=== PATIENT | male | born 1955 | race Caucasian/White ===

== ENCOUNTER 2020-05-23 00:34 | Outpatient (CLI) | payer OTHER, SELFPAY ==
[2020-05-23 19:08] LABS: SARS-CoV-2 RNA PCR Negative
== END 2020-05-23 00:35 | disposition home or self-care (01) ==
LOC: ANHCOVIDDT 00:34
PROVIDERS: PCP Internal Medicine; Visit Provider Internal Medicine Gastroenterology
DX: Z01.812 Encounter for preprocedural laboratory examination (principal); Z11.59 Encounter for screening for other viral diseases
CPT/HCPCS: 87635; C9803; U0003

== ENCOUNTER 2020-05-25 01:45 | Day surgery (SDC) | payer OTHER, SELFPAY ==
[2020-05-18 11:00] VITALS: BMI 24.1
[2020-05-25 08:28] VITALS: BP 135/80; PULSE 64; RESP 22; TEMP 36.5; O2SAT 98; BMI 24.5
[2020-05-25] MEDS: LACTATED RINGERS 1,000 ML 150 ML IV CONT (08:49)
--- NOTE | 2020-05-25 08:56 | PM.HPGS ---
History of Present Illness History of Present Illness Consent: Risks, benefits, and alternatives have been discussed and questions answered. Patient agrees to proceed with procedure. Chief complaint: gerd, neoplasm screening, hx of polyps Narrative: Justin Jensen is a 65 year old W male referred for gastroscopy and colonoscopy. Patient has had chronic intermittent solid food dysphagia particularly with dry foods. He also has a intermittent history of heartburn. He does not take any acid inhibitory therapy. Patient undergoing colonoscopy secondary history of colonic polyps. Patient had an adenomatous polyp removed 10 years ago he was to return 5 years later but states he never sees a letter. No family history of colon polyps or colon cancer. He has no lower GI tract symptoms. [facility] Past Medical History Medical History (Updated 05/25/20 @ 08:58 by George Nicolas MD) Hypertension Surgical History Surgical History (Updated 05/25/20 @ 08:58 by George Nicolas MD) S/P right inguinal herniorrhaphy Family History Family History (Updated 07/07/14 @ 07:13 by DOCTOR UNKNOWN) Mother Hypertension Cerebrovascular accident Family history of Alzheimer's disease Father Malignant neoplasm of prostate Sibling Family history of malignant neoplasm of testis Social History Social History Smoking status: Former smoker Smoking end date: 11/10/90 Alcohol intake: current Gender identity (if verbalized by the patient): Male Meds Home Medications and Allergies Home Medications Medication Instructions Recorded Confirmed Type amlodipine 5 mg PO DAILY 05/18/20 05/18/20 History tamsulosin 0.4 mg PO DAILY 05/18/20 05/18/20 History Allergies Allergy/AdvReac Type Severity Reaction Status Date / Time codeine Allergy Severe Rash Verified 05/25/20 08:28 Vital Signs Vital Signs - 24 hr 05/25/20 08:28 Temperature 36.5 C Pulse Rate 64 Respiratory Rate 22 H Blood Pressure 135/80 Pulse Oximetry 98 Exam Const: Orientation/consciousness: patient oriented x3 Resp: Auscultation: clear to auscultation bilaterally Cardio: Rate: regular rate Rhythm: regular rhythm Heart sounds: no murmurs GI: GI Palp: Yes Soft to palpation, No Tenderness to palpation present (GI), Yes No hepatosplenomegaly present and No Palpable mass present Auscultation: normal bowel sounds Neuro: General: patient oriented x3 and no focal motor deficits Extrem: General: no pedal edema Assessment and Plan Additional Plan EGD for evaluation of dysphagia and heartburn and screening colonoscopy secondary history of colonic polyps
--- NOTE | 2020-05-25 09:20 | WPDANESEPPF ---
Anes - Initial Pre Proc Eval Procedure: Operation Date: 05/25/20 09:30 Proposed Procedures p Esophagogastroduodenoscopy&Screen Colon - George Nicolas MD Date/Time: 05/25/20 09:20 Surgeon: George Nicolas MD Pre Op Diagnosis: gerd, neoplasm screening, hx of polyps Patient Data Age: 65 Gender: M Height: 5 ft 7 in Weight: 71.2 kg Last Vital Signs Temp 36.5 C 05/25/20 08:28 Pulse 64 05/25/20 08:28 Resp 22 H 05/25/20 08:28 BP 135/80 05/25/20 08:28 Pulse Ox 98 05/25/20 08:28 Allergies Allergy/AdvReac Type Severity Reaction Status Date / Time codeine Allergy Severe Rash Verified 05/25/20 08:28 Home Medications Medication Instructions Recorded Confirmed Type amlodipine 5 mg PO DAILY 05/18/20 05/18/20 History tamsulosin 0.4 mg PO DAILY 05/18/20 05/18/20 History Patient hx anesthesia problems: none Family hx anesthesia problems: none PMFSH Past Medical History Medical History Hypertension Surgical History Surgical History S/P right inguinal herniorrhaphy Family History Family History Mother Hypertension Cerebrovascular accident Family history of Alzheimer's disease Father Malignant neoplasm of prostate Sibling Family history of malignant neoplasm of testis Social History Social History Smoking status: Former smoker Smoking end date: 11/10/90 Alcohol intake: current Gender identity (if verbalized by the patient): Male Anes - Eval Final PreProcedure Day of Procedure 05/25/20 09:20 Patient weight: normal Heart: regular rate and rhythm Lungs: clear to auscultation Airway: Mallampati scale class II Neurological: alert and oriented Last oral intake: >/= 8 hours ASA classification: II Emergent: no Anesthetic plan: proceed Anesthesia type and monitoring: general GIVS and standard monitoring Informed Consent: The patient's anesthetic plan and its attendant risks and benefits were discussed with the patient/family/POA. Questions were solicited and answers provided to the satisfaction of the patient/family/POA.
[2020-05-25 10:07] VITALS: BP 103/62; PULSE 59; RESP 18; O2SAT 97
[2020-05-25 10:17] VITALS: BP 98/61; PULSE 59; RESP 18; O2SAT 97
[2020-05-25 10:26] VITALS: BP 102/66; PULSE 52; RESP 18; O2SAT 97
== END 2020-05-25 10:41 | disposition home or self-care (01) ==
PROVIDERS: PCP Internal Medicine; Visit Provider Internal Medicine Gastroenterology
PROC: 0DJ08ZZ Inspection of Upper Intestinal Tract, Via Natural or Artificial Opening Endoscopic (ICD-10-PCS; CPT 43235; principal; 2020-05-25 09:30)
DX: Z12.11 Encounter for screening for malignant neoplasm of colon (principal); Z86.010 Personal history of colon polyps; K57.30 Diverticulosis of large intestine without perforation or abscess without bleeding; K21.0 Gastro-esophageal reflux disease with esophagitis; I10 Essential (primary) hypertension; Z87.891 Personal history of nicotine dependence; Z79.899 Other long term (current) drug therapy
CPT/HCPCS: 43239; G0105; 88305; J2704; J7120

== ENCOUNTER 2020-07-22 12:02 | Inpatient (IN) | payer OTHER, SELFPAY ==
[2020-07-22] VITALS (10 sets, daily range): BP systolic 152–174; BP diastolic 84–109; PULSE 62–93; RESP 8–20; TEMP 36.4–36.6; O2SAT 96–99; BMI 24.8; BMI 24.9
--- NOTE | ~2020-07-22 | XR_ITS ---
XR abdomen NG/feed tube rechec INDICATION: Evaluate NG tube position. TECHNIQUE: Limited KUB perform for evaluating NG tube . COMPARISON: 07/22/2020 FINDINGS: NG tube tip in the stomach, advanced since prior study. Visualized bowel gas pattern is un remarkable. IMPRESSION: 1: NG tube tip in the stomach. Reviewed, dictated and finalized at location A.
--- NOTE | ~2020-07-22 | CT_ITS ---
EXAMINATION: CT abdomen pelvis w con DATE: 07/22/2020 13:28 INDICATION: Left lower quadrant pain TECHNIQUE: Computed tomography (CT) of the abdomen and pelvis was performed with 100 cc Omnipaque 3 i ntravenous contrast. The dose-length product was 395.12 mGy-cm. Automated exposure control and iterat liv reconstruction technique were employed. COMPARISON: None. FINDINGS: There are dilated small bowel loops centered in the left mid abdomen with multiple focal ar eas of small bowel narrowing, consistent with obstruction. The more proximal small bowel in the dista l small bowel are relatively decompressed. No interloop fluid is identified. The colon is decompresse d. No evidence for diverticulitis. No free air or free fluid. Lung bases unremarkable. No significant pleural or pericardial effusion. The liver, spleen, pancreas, adrenal glands and kidneys are unremarkable. Gallbladder is present. There is atherosclerosis of the aorta without aneurysm. No lymphadenopathy. Prostate gland is enlarged. There is grade 1 spondylolis thesis at L5-S1 secondary to facet hypertrophy. IMPRESSION: 1. Small bowel obstruction with multiple segments of small bowel narrowing/thickening which may be du e to adhesions or inflammatory bowel disease. Reviewed, dictated and finalized at location A. IMPRESSION: 1. Small bowel obstruction with multiple segments of small bowel narrowing/thic kening which may be due to adhesions or inflammatory bowel disease.
--- NOTE | ~2020-07-22 | XR_ITS ---
EXAMINATION: XR abdomen NG/feed tube insert DATE: 07/22/2020 14:49 INDICATION: Nasogastric tube placement. TECHNIQUE: An upright view of the abdomen was obtained. COMPARISON: CT abdomen and pelvis 07/22/2020 FINDINGS: The lower abdomen and right lateral aspect of the adrenal excluded. There are multiple dila aureliano loops of small bowel. The nasogastric tube tip is in the stomach with proximal side port in the d istal esophagus. IMPRESSION: 1. Nasogastric tube tip in the stomach with proximal side port in the distal esophagus. Advancement 5 cm is recommended. 2. Dilated small bowel, consistent with small bowel obstruction. Reviewed, dictated and finalized at location A. IMPRESSION: 1. Nasogastric tube tip in the stomach with proximal side port in the distal es ophagus. Advancement 5 cm is recommended. 2. Dilated small bowel, consistent with small bowel obstruction.
--- NOTE | ~2020-07-22 | XR_ITS ---
SMALL BOWEL SERIES ONLY INDICATION: Small bowel obstruction TECHNIQUE: Serial plain films and fluoroscopic spot films are performed following oral demonstration of water-soluble contrast. COMPARISON: 07/22/2020 FINDINGS: Contrast was followed sequentially through the small bowel. The mucosal pattern is unremar kable. No evidence for stricture, polyp, diverticula or obstruction of flow of contrast. Transit ti me is normal. IMPRESSION: 1: Normal small bowel series. Reviewed, dictated and finalized at location A.
--- NOTE | 2020-07-22 12:30 | ECG_ITS ---
Measurements Intervals [place] Rate: 73 P: 73 CO: 144 QRS: 61 QRSD: 97 T: 47 QT: 387 QTc: 428 Interpretive Statements SINUS RHYTHM POSSIBLE LEFT ATRIAL ENLARGEMENT INCOMPLETE RIGHT BUNDLE BRANCH BLOCK BORDERLINE ECG Electronically Signed On 07-22-2020 14:22:09 CDT by Jace Macdonald D.O.
[2020-07-22 12:43] LABS: Basophils Absolute Auto 0.1 K/mm3 (0.0-0.1); Basophils Percent Auto 1.1 % (0.2-1.2); Eosinophils Absolute Auto 0.3 K/mm3 (0-0.3); Eosinophils Percent Auto 3.8 % (0-4.4); Hematocrit 43.4 % (42.0-52.0); Hemoglobin 14.9 g/dL (14.0-18.0); Immature Granulocyte Absolute 0.03 K/mm3 (0.00-0.031); Immature Granulocyte Percent A 0.4 % (0-0.5); Lymphocytes Absolute Auto 1.61 K/mm3 (0.9-3.2); Lymphocytes Percent Auto 19.4 % (18.3-44.2); Mean Corpuscular HGB Conc 34.3 g/dl (32-36); Mean Corpuscular Volume 87.5 fl (80-100); Mean Platelet Volume 9.8 fl (7.4-10.4); Monocytes Absolute Auto 0.9 K/mm3 (0.1-0.6); Monocytes Percent Auto 10.7 % (2.6-8.5); Neutrophils Absolute Auto 5.4 K/mm3 (1.3-6.7); Neutrophils Percent Auto 64.6 % (45.5-73.1); Platelet Count Result 256 k/mm3 (150-375); Red Blood Count 4.96 M/mm3 (4.6-6.20); Red Cell Distribution Width 13.2 % (11.5-14.5); White Blood Count 8.3 K/mm3 (4.5-10.0)
[2020-07-22 12:46] LABS: Add Urine Microscopic? NO; Appearance Urine Clear (Clear); Bilirubin Urine Negative (Negative); Blood Urine Negative (Negative); Color Urine Straw (Yellow); Glucose Urine UA Negative (Negative); Ketones Urine Negative (Negative); Leukocyte Esterase Ur Negative LEU/UL (Negative); Nitrate Urine Negative (Negative); Protein Urine Negative (Negative); Specific Grav Ur 1.011 (1.001-1.035); Urobilinogen Urine Negative mg/dL (<2.0)
[2020-07-22 12:51] LABS: Alanine Aminotransferase 25 U/L (4-50); Albumin Level 4.6 g/dL (3.5-5.1); Alkaline Phosphatase 90 U/L (38-126); Anion Gap 8 mmol/L (8-16); Aspartate Amino Transferase 50 U/L (17-59); Bilirubin,Total 0.6 mg/dL (0.2-1.3); Blood Urea Nitrogen 18 mg/dL (9-20); Carbon Dioxide 26 mmol/L (22-30); Chloride 101 mmol/L (98-107); Estimated CRCL calculation 62 ml/min; Estimated Glomerular Filt Rate > 60; Glucose 105 mg/dL (75-110); Lipase 98 U/L (23-300); Potassium 3.9 mmol/L (3.4-5.0); Sodium 135 mmol/L (137-145)
--- NOTE | 2020-07-22 13:00 | PC.NURSE ---
PT ASKING FOR PAIN MEDICATION, SPOKE WITH ABIMBOLA GARCIA, HE STATES HE WILL PLACE ORDERS. AWAITING NEW ORDERS.
[2020-07-22] MEDS: LACTATED RINGERS 1,000 ML 999 ML IV CONT (13:05)
--- NOTE | 2020-07-22 13:19 | ED.ABDPAIN ---
HPI - Abdominal Pain General Chief Complaint: Abdominal Pain Stated Complaint: abd pain Time Seen by Provider: 07/22/20 12:33 Source: patient Mode of arrival: ambulatory Limitations: no limitations History of Present Illness HPI narrative: 65-year-old man with a history of hypertension No abdominal surgeries Remote history of diverticulitis Complains of abdominal pain radiating into his back which started about an hour after he had breakfast while he was shopping at [employer] He tried Tums and drinking water with no relief He does not have other symptoms, no nausea vomiting diarrhea constipation, no fever, no urinary symptoms Pain has not changed or moved substantially He noticed that he was more tender in the lower left quadrant versus his perception of the pain which was more diffuse and possibly upper He does not smoke, he used to drink but he does not anymore Pertinent past history: diverticulitis Onset (ago): hour(s) Pain Consistency: constant Location: diffuse and LLQ Severity: moderate Quality: aching Radiation: back Migration to: no migration Exacerbating factors: nothing Relieving factors: nothing Context: denies recent surgery/procedure Treatments prior to arrival: antacids Related Data Home Medications Medication Instructions Recorded Confirmed amlodipine 5 mg PO DAILY 05/18/20 05/18/20 tamsulosin 0.4 mg PO DAILY 05/18/20 05/18/20 omeprazole magnesium [Prilosec OTC] 20 mg PO DAILY 07/22/20 Allergies Allergy/AdvReac Type Severity Reaction Status Date / Time codeine Allergy Severe Rash Verified 05/25/20 08:28 Review of Systems Review of Systems: All systems reviewed & are unremarkable except as noted in HPI and below Constitutional: Constitutional: Denies chills, Denies fatigue, Denies fever(s), Denies headache(s) and Denies night sweats Eyes: Eyes: Denies change in vision, Denies loss of vision and Denies other visual disturbances ENT: Denies headache(s), Denies hoarseness, Denies epistaxis, Denies nasal congestion and Denies sore throat Cardiovascular: Cardiovascular: Denies chest pain, Denies leg edema, Denies palpitations and Denies dyspnea Respiratory: Respiratory: Denies cough, Denies dyspnea and Denies wheezing Gastrointestinal: Gastrointestinal: Reports as per HPI Genitourinary: Genitourinary: Denies hematuria, Denies dysuria and Denies urinary frequency Musculoskeletal: Musculoskeletal: Denies abnormal gait, Denies deformity, Denies joint swelling, Denies muscle weakness and Denies numbness Integumentary/Breasts: Skin/Breast: Denies rash, Denies unusual bruising and Denies wounds Neurologic: Denies abnormal gait, Denies headache(s), Denies focal weakness, Denies loss of vision and Denies numbness Psychiatric: Psychiatric: Reports no additional psychiatric complaints Endocrine: Endocrine: Denies fatigue and Denies palpitations Hematologic/Lymphatic: Hematologic/Lymphatic: Denies easy bleeding and Denies easy bruising Allergic/Immunologic: Allergic/Immunologic: Denies wheezing PMFSH Social History Social History Smoking status: Former smoker Smoking end date: 11/10/90 Alcohol intake: current Gender identity (if verbalized by the patient): Male Exam Const: General: healthy appearing, no acute distress and well developed Nutritional Appearance: well nourished Orientation/consciousness: patient oriented x3 (alert) and Other orientation findings (Alert) Limitations: no limitations HENMT: Head: normocephalic and atraumatic Ears: external ears normal General nose exam: No nasal discharge present and no epistaxis Face and sinus: face symmetric Mouth: Yes lip normal, Yes tongue normal and Yes moist mucous membranes Throat: other (No exudate, no erythema) Eyes: Conjunctivae: conjunctivae normal Sclera: sclerae normal EOM: EOMs intact bilaterally Neck: Neck: full ROM, no lymphadenopathy and supple Thyroi
--- NOTE | 2020-07-22 13:59 | PC.NURSE ---
RN AT BEDSIDE, PT UPSET THAT HE IS STILL IN PAIN, STATES THAT HE NEVER HEARD FROM THE ERP ABOUT THE RESULTS OF THE EKG AND IF HES HAVING A HEART ATTACK. PT STATES HE IS NOW HAVING 10/10 PAIN AND THE FENTANYL DID NTO HELP. ERP JOSE INFORMED, NO NEW ORDERS.
[2020-07-22] MEDS: ONDANSETRON INJ 4 MG/2 ML VIAL IV PUSH (15:42)
--- NOTE | 2020-07-22 16:00 | PC.NURSE ---
PT NG TUBE ADVANCED 5CM PER XRAY RECCOMENDATION.
--- NOTE | 2020-07-22 17:21 | PC.NURSE ---
This patient, Justin Jensen, was admitted to Medical Room 345-. Patient/family oriented to hospital policies and general routines including ID bracelet, bed and alarms, visiting hours, pain management, procedures, bathroom and other care routines, personal items, smoking policy, room service/diet, and visiting hours. Valuables list has been completed. Information on how to activate the Rapid Response Team has been discussed. Patient/Family are encouraged to report perceived risks to care and to ask questions if they do not understand what they are told or what they should do.
[2020-07-22] MEDS: LACTATED RINGERS 1,000 ML 150 ML IV CONT (18:08)
--- NOTE | 2020-07-22 20:27 | PM.IMHP ---
H&P: HPI History of Present Illness Date/Time: 07/22/20 20:27 Chief complaint: sm bowel obstruction Narrative: Justin Jensen is a 65 year old male Was not had any history of small-bowel obstruction in the past. He has had colonoscopies in the past and had a benign polyp removed. He recently had scopes performed an EGD which shows some esophagitis. The patient has chronic lead loose stools. Any uses Metamucil and that helps. He has a history of diverticulosis with 1 bout of diverticulitis in the past. The pain started when he was shopping and [employer]. Out he had eaten approximately 1 hour prior to this episode. He complained of left lower quadrant pain that radiated to his back. He tried Tums and drinking water without any relief. The patient was recently nose with esophagitis and had been placed on omeprazole. Patient stated he had an episode of diverticulitis in the past and thought maybe this was what was going on. His daughter is a PA and he had called her for suggestions. He was recommended that the patient go to the emergency room for further follow-up. Abdominal CT was read by radiologist as small-bowel obstruction with multiple segments of small bowel narrowing thickening which may be due to adhesions or inflammatory bowel disease. An NG tube was placed in the left near. Repeat abdominal x-ray was read as nasal gastric tube tip in the stomach with proximal side port in the distal esophagus dilated small bowel consistent with small-bowel obstruction. Date of service 07/22/2020 Review of Systems Review of Systems: All systems reviewed & are unremarkable except as noted in HPI and below Constitutional: Constitutional: Reports as per HPI and Reports no additional constitutional complaints Eyes: Eyes: Reports as per HPI and Reports no additional eye complaints ENT: Reports system reviewed and no additional complaints, except as documented and Reports Normal hearing present Cardiovascular: Cardiovascular: Reports no additional cardiovascular complaints Respiratory: Respiratory: Reports no additional respiratory complaints and Reports no additional respiratory complaints Gastrointestinal: Gastrointestinal: Reports as per HPI and Reports no additional gastrointestinal complaints Musculoskeletal: Musculoskeletal: Reports no additional musculoskeletal complaints Integumentary/Breasts: Skin/Breast: Reports system reviewed and no additional complaints, except as docu and Reports as per HPI Neurologic: Reports system reviewed and no additional complaints, except as documented, Reports as per HPI and Reports Normal hearing present Psychiatric: Psychiatric: Reports no additional psychiatric complaints and Reports as per HPI Endocrine: Endocrine: Reports no additional endocrine complaints Hematologic/Lymphatic: Hematologic/Lymphatic: Reports no additional hematologic/lymphatic complaints Allergic/Immunologic: Allergic/Immunologic: Reports no additional allergic/immunologic complaints [facility] Past Medical History Medical History (Updated 07/22/20 @ 20:37 by Keyana Palma NP) Abnormal colonoscopy BPH (benign prostatic hyperplasia) GERD with esophagitis HTN (hypertension), malignant Hypertension Surgical History Surgical History (Updated 07/22/20 @ 20:37 by Keyana Palma NP) H/O endoscopy H/O rectal polypectomy S/P right inguinal herniorrhaphy Family History Family History Mother Hypertension Cerebrovascular accident Family history of Alzheimer's disease Father Malignant neoplasm of prostate Sibling Family history of malignant neoplasm of testis Social History Social History (Updated 07/22/20 @ 20:39 by Keyana Palma NP) Social History: the patient use of a but 1 time as well. He denies any alcohol marijuana or illicit drug use. 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 He has a son and a daughter. He is and
[2020-07-22] MEDS: PHENOL/SOD PHENO SPRAY CHERRY (*BKC) 1 SPRAY MUCOUS MEM (21:06)
[2020-07-22] MEDS: PANTOPRAZOLE SODIUM IV 40 MG VIAL IV PUSH (21:06)
[2020-07-23] MEDS: LACTATED RINGERS 1,000 ML 150 ML IV CONT ×2 (01:10→08:10)
[2020-07-23 06:00] VITALS: BP 155/78; PULSE 55; RESP 18; TEMP 36.6; O2SAT 97
[2020-07-23 06:24] LABS: Basophils Absolute Auto 0.1 K/mm3 (0.0-0.1); Basophils Percent Auto 1.3 % (0.2-1.2); Eosinophils Absolute Auto 0.4 K/mm3 (0-0.3); Eosinophils Percent Auto 5.7 % (0-4.4); Hematocrit 40.9 % (42.0-52.0); Hemoglobin 13.9 g/dL (14.0-18.0); Immature Granulocyte Absolute 0.02 K/mm3 (0.00-0.031); Immature Granulocyte Percent A 0.3 % (0-0.5); Lymphocytes Absolute Auto 1.45 K/mm3 (0.9-3.2); Lymphocytes Percent Auto 22.8 % (18.3-44.2); Mean Corpuscular Hemoglobin 30.2 pg (26-34); Mean Corpuscular Volume 88.9 fl (80-100); Mean Platelet Volume 9.9 fl (7.4-10.4); Monocytes Absolute Auto 0.9 K/mm3 (0.1-0.6); Neutrophils Absolute Auto 3.6 K/mm3 (1.3-6.7); Neutrophils Percent Auto 55.9 % (45.5-73.1); Platelet Count Result 233 k/mm3 (150-375); Red Cell Distribution Width 13.2 % (11.5-14.5); White Blood Count 6.4 K/mm3 (4.5-10.0)
[2020-07-23 07:07] LABS: Anion Gap 5 mmol/L (8-16); Blood Urea Nitrogen 12 mg/dL (9-20); Calcium 8.7 mg/dL (8.4-10.2); Carbon Dioxide 28 mmol/L (22-30); Chloride 101 mmol/L (98-107); Estimated CRCL calculation 62 ml/min; Estimated Glomerular Filt Rate > 60; Glucose 92 mg/dL (75-110); Magnesium 2.1 mg/dL (1.6-2.3); Potassium 3.6 mmol/L (3.4-5.0); Sodium 134 mmol/L (137-145)
[2020-07-23] MEDS: PANTOPRAZOLE SODIUM IV 40 MG VIAL IV PUSH (08:12)
--- NOTE | 2020-07-23 10:14 | PM.CNGS ---
Assessment and Plan Assessment and plan (1) Small bowel obstruction: Code(s): K56.609 - Unspecified intestinal obstruction, unspecified as to partial versus complete obstruction Status: Acute Assessment and Plan: Upper GI small-bowel follow-through has been ordered. Since the patient is really not had any previous abdominal surgery, the CT scan suggest possibility of inflammatory bowel disease such as Crohn's disease. Patient currently has NG tube in place but it is draining little. Patient just finished his upper GI small-bowel series and I reviewed it with the radiologist. It is essentially a normal study. There is no small bowel dilatation. There is no evidence of stricturing. Transit time to the colon is at least 45 minutes and may even be 30 minutes. With resolution of his symptoms, I suspect he did not have a small-bowel obstruction or if he did, it was a small intraluminal bit of solid matter that had caused his complaints. This has resolved. I will go ahead and DC is NG tube and start him on liquids. I will sign off. He can go home later today and no surgical follow-up is needed. (2) BPH (benign prostatic hyperplasia): Code(s): N40.0 - Benign prostatic hyperplasia without lower urinary tract symptoms Status: Chronic Assessment and Plan: On tamsulosin (3) GERD with esophagitis: Code(s): K21.0 - Gastro-esophageal reflux disease with esophagitis Status: Chronic Assessment and Plan: diagnosed by EGD May 25, 2020 and started on Prilosec. (4) HTN (hypertension), malignant: Code(s): I10 - Essential (primary) hypertension Status: Chronic Assessment and Plan: Patient noted to be bradycardic but has an elevated blood pressure. Hospitalist is treating. History of Present Illness Consult details Consult date: 07/23/20 Reason for consult: abdominal pain Narrative: patient is a 65-year-old man who yesterday about an hour after eating breakfast developed rather diffuse somewhat upper abdominal pain while shopping at [employer]. He noticed he was tender in the left lower quadrant although the pain seemed to be more in the upper abdomen or throughout the abdomen. He had no nausea vomiting or diarrhea. He came to the emergency room where he was evaluated. He was afebrile. His white count and H&H were normal. Electrolytes were normal. He was noted to be tender in the left lower quadrant. He had a CT scan which showed preponderance of stool throughout the colon. It was also suggestive of multiple areas of small bowel narrowing or stricture. The patient is had no previous abdominal surgeries although he did have a robotic inguinal hernia repair 4 years ago. He also has a history of an EGD and colonoscopy in May by Dr. Nicolas. Colonoscopy showed only some diverticulosis. The EGD was done primarily for dysphagia, particularly solid foods. It did show class 2 distal esophageal esophagitis and he was started on Prilosec. Patient is admitted now for possible small bowel obstruction as suggested by the CT scan. Through the night his abdominal pain resolved. He currently has no complaints of abdominal pain and no complaints of abdominal tenderness. Review of Systems Review of Systems: All systems reviewed & are unremarkable except as noted in HPI and below Constitutional: Constitutional: Denies chills, Denies fever(s) and Denies headache(s) Cardiovascular: Cardiovascular: Denies chest pain, Denies irregular heart rhythm, Denies claudication, Denies palpitations and Denies dyspnea on exertion Respiratory: Respiratory: Denies chest congestion, Denies cough and Denies dyspnea on exertion Gastrointestinal: Gastrointestinal: Reports as per HPI, Reports abdominal pain, Reports heartburn ( started on Prilosec for esophagitis) and Reports loose stools ( Long history chronic loose stools) Neurologic: Denies Sensory deficit (Neuro) [facility] Past Medical History Med
--- NOTE | 2020-07-23 12:50 | PM.DS ---
DS: Admitting Diagnosis Admitting Diagnosis Admitting Diagnosis: sm bowel obstruction DS: Discharge Diagnosis Discharge Diagnosis (1) Small bowel obstruction: Code(s): K56.609 - Unspecified intestinal obstruction, unspecified as to partial versus complete obstruction Status: Acute (2) HTN (hypertension), malignant: Code(s): I10 - Essential (primary) hypertension Status: Chronic (3) GERD with esophagitis: Code(s): K21.0 - Gastro-esophageal reflux disease with esophagitis Status: Chronic (4) BPH (benign prostatic hyperplasia): Code(s): N40.0 - Benign prostatic hyperplasia without lower urinary tract symptoms Status: Chronic DS: Summary Hospital Course Reason for hospitalization: O Hospital Course: 65 yo who presented to the hospital with acute abdominal pain and was found to have a possible small bowel obstruction. He had a NG tube placed, had small bowel series this morning that showed complete resolution of the obstruction. His NG tube was removed and he is going to try to eat, if he tolerates a regular diet he can be discharged today. Status at Discharge Cognitive/behavioral status at discharge: Alert and oriented. Functional status at discharge: independent ambulation Overall status at discharge: patient is back to baseline Time Spent with Patient Time attestation: Total time spent providing and/or coordinating discharge services: Time spent: Less than 30 minutes Exam Const: General: comfortable and no acute distress Neck: Neck: supple and no JVD Resp: Effort & Inspection: normal respiratory effort Auscultation: clear to auscultation bilaterally Cardio: Rate: regular rate Rhythm: regular rhythm GI: GI Palp: Yes Soft to palpation Other: Non tender, non distended, bowel sounds are normal. Neuro: Motor exam (neuro): 5/5 motor strength present throughout and Normal motor muscle tone present throughout Sensory Exam: normal sensation Extrem: General: normal to inspection DS: Data Data Completed and Pending Labs on day of discharge: Labs from last 24 hours 07/23/20 07/23/20 07/23/20 06:01 06:01 06:01 WBC 6.4 RBC 4.60 Hgb 13.9 L Hct 40.9 L MCV 88.9 MCH 30.2 MCHC 34.0 RDW 13.2 Plt Count 233 MPV 9.9 Immature Gran % (Auto) 0.3 Neut % (Auto) 55.9 Lymph % (Auto) 22.8 [place] % (Auto) 14.0 H Eos % (Auto) 5.7 H Baso % (Auto) 1.3 H Lymph # (Auto) 1.45 [place] # (Auto) 0.9 H Eos # (Auto) 0.4 H Baso # (Auto) 0.1 Abs Immat Gran (auto) 0.02 Absolute Neuts (auto) 3.6 Absolute Nucleated RBC 0.0 Nucleated RBC % 0.0 Sodium 134 L Potassium 3.6 Chloride 101 Carbon Dioxide 28 Anion Gap 5 L BUN 12 D Creatinine 1.00 Estim Creat Clear Calc 62 Estimated GFR > 60 Glucose 92 Calcium 8.7 Magnesium 2.1 Total Bilirubin AST ALT Alkaline Phosphatase Total Protein Albumin Lipase TSH (Reflex) 2.740 07/22/20 12:26 WBC RBC Hgb Hct MCV MCH MCHC RDW Plt Count MPV Immature Gran % (Auto) Neut % (Auto) Lymph % (Auto) [place] % (Auto) Eos % (Auto) Baso % (Auto) Lymph # (Auto) [place] # (Auto) Eos # (Auto) Baso # (Auto) Abs Immat Gran (auto) Absolute Neuts (auto) Absolute Nucleated RBC Nucleated RBC % Sodium 135 L Potassium 3.9 Chloride 101 Carbon Dioxide 26 Anion Gap 8 BUN 18 Creatinine 1.00 Estim Creat Clear Calc 62 Estimated GFR > 60 Glucose 105 Calcium 9.0 Magnesium Total Bilirubin 0.6 AST 50 ALT 25 Alkaline Phosphatase 90 Total Protein 7.0 Albumin 4.6 Lipase 98 TSH (Reflex) Discharge Plan Discharge Attending physician on discharge: Thor Hendrix Discharging Clinician: Thor Hendrix Patient Disposition: Home, Self-Care Activity: unlimited Diet: heart healthy Patient Instructions: Antibiotic Form, Enlarged Prostate (BPH) (DC), Pain
[2020-07-23] MEDS: amLODIPine BESYLATE 5 MG TABLET PO (13:55)
== END 2020-07-23 14:21 | disposition home or self-care (01) | DRG 390 ==
LOC: ANHED 15:03 → ANH3MED 16:50
PROVIDERS: Emergency Medicine; Nurse Practitioner; Admitting Provider Hospitalist; Emergency Provider Emergency Medicine; PCP Internal Medicine; Visit Provider Hospitalist
DX: K56.609 Unspecified intestinal obstruction, unspecified as to partial versus complete obstruction (principal); K21.0 Gastro-esophageal reflux disease with esophagitis; N40.0 Benign prostatic hyperplasia without lower urinary tract symptoms; I10 Essential (primary) hypertension; Z87.891 Personal history of nicotine dependence
CPT/HCPCS: 36415; 74018; 74177; 74250; 80048; 80053; 81003; 83690; 83735; 84443; 85025; 93005; 96361; 96374; 99285; A9270; C9113; J0131; J2405; J3010; J7120; Q9967

== ENCOUNTER 2024-09-04 17:46 | Emergency (ER) | payer OTHER, SELFPAY ==
[2024-09-04 17:52] VITALS: BP 157/98; PULSE 64; RESP 18; TEMP 36.6; O2SAT 97
--- NOTE | 2024-09-04 17:54 | ED_ITS ---
HPI - Wound/Laceration General Chief Complaint: Wound/Laceration Stated Complaint: thumb lac Time Seen by Provider: 09/04/24 17:49 Source: patient Mode of arrival: ambulatory Limitations: no limitations History of Present Illness HPI narrative: this is a 69-year-old male who presents to the ED for chief complaint of laceration to the left thumb that occurred just prior to arrival. Patient reports that he was chopping vegetables with a dull knife. States that while pushing too hard on a turn up the knife slipped down onto the left thumb. Denies any further sites of pain or injury. He was sent here from urgent care who was concerned about involvement of the thumbnail. Related Data Home Medications Medication Instructions Recorded Confirmed amlodipine 5 mg tablet 5 mg PO DAILY 05/18/20 02/17/23 tamsulosin 0.4 mg capsule 0.4 mg PO DAILY 05/18/20 02/17/23 Allergies Allergy/AdvReac Type Severity Reaction Status Date / Time codeine Allergy Severe Rash Verified 09/04/24 18:04 Review of Systems Review of Systems: All systems as dictated in HPI [facility] Past Medical History Medical History Abnormal colonoscopy BPH (benign prostatic hyperplasia) GERD with esophagitis HTN (hypertension), malignant Hypertension Small bowel obstruction Surgical History Surgical History H/O endoscopy H/O rectal polypectomy S/P right inguinal herniorrhaphy done robotically. Family History Family History Mother Hypertension Cerebrovascular accident Family history of Alzheimer's disease Father Malignant neoplasm of prostate Sibling Family history of malignant neoplasm of testis Social History Social History Social History: the patient use of a but 1 time as well. He denies any alcohol marijuana or illicit drug use. 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 He has a son and a daughter. He is and has a significant other. He does not have a power transactional attorney Listed but is a full code. Smoking status: Former smoker Smoking end date: 11/10/90 Alcohol intake: former Substance use: never Gender identity (if verbalized by the patient): Male Spiritual care concerns: No Exam Narrative: GENERAL: Well-appearing, well-nourished, and in no acute distress. HEAD: Normocephalic, atraumatic. MSK: Normal range of motion. No edema. SKIN: 2 cm laceration to the distal left thumb. bleeding controlled on ar rival. very distal tip of the medial corner of the fingernail has been avulsed. NEURO: Alert and oriented x4. No focal deficits. PSYCH: Normal mood and affect. Course Vital Signs Vital signs: Vital Signs Temperature 97.8 F 09/04/24 17:52 Pulse Rate 64 09/04/24 17:52 Respiratory Rate 18 09/04/24 17:52 Blood Pressure 157/98 H 09/04/24 17:52 Pulse Oximetry 97 09/04/24 17:52 Oxygen Delivery Room Air 09/04/24 17:52 Temperature 97.8 F 09/04/24 17:52 Pulse Rate 64 09/04/24 17:52 Respiratory Rate 18 09/04/24 17:52 Blood Pressure 157/98 H 09/04/24 17:52 Pulse Oximetry 97 09/04/24 17:52 Oxygen Delivery Room Air 09/04/24 17:52 Procedures Laceration Laceration 1: Date: 09/04/24 Time: 18:58 Site: hand ( thumb) Side (If applicable): left Size (cm): 2 Description: linear Depth: simple, single layer Local Anesthetic: lidocaine 1% Amount of anesthesia used (mL): 3 ====== Skin Level ====== Skin layer closed with: nylon, dermabond and steri strips Size (cm): 5-0 Number of sutures: 3 Technique: simple, interrupted ====== Subcutaneous Layer ====== ====== Muscle Layer ====== ====== Tendon Layer ====== MDM - Wound/Laceration MDM Narrative Medical decision making narrative: This is a 61-year-old male who presents to the ED for chief complaint of left thumb laceration. Vitals are normal. Exam shows laceration to the distal thumb with very minimal nail involvement. The laceration was cleansed and irrigated here in the ED. closed primarily with sutures, Steri-Strips and Dermabond. Laceration instructions given. Pt will be discharged in stable condition. Return precautions given and supportive measures discussed. Pt is understanding and agreeable with plan for discharge and follow-up with PCP. Discharge Plan Discharge Clinical Impression: Laceration of thumb Patient Disposition: Home, Self-Care Condition: Stable Instructions: Antibiotic Form, Laceration (ED) Additional Instructions: Keep wound clean and dry. Do not soak, take baths, or swim until wound is completely healed. If any signs of infection such as redness, swelling, increasing pain, drainage of purulent discharge, streaks up your extremity develop, seek medical attention immediately. Followup with your primary care provider in [5-7] days for suture removal. Prescriptions: No Action amlodipine 5 mg tablet 5 mg PO DAILY tamsulosin 0.4 mg capsule 0.4 mg PO DAILY omeprazole 20 mg capsule,delayed release(DR/EC) See Rx Instructions .ROUTE .COMPLEX Qty: 90 3RF Dose Instruction: TAKE 1 CAPSULE BY MOUTH EVERY DAY Rx Instructions: TAKE 1 CAPSULE BY MOUTH EVERY DAY Follow-up/Referrals: Caden,Wili Liao MD [Primary Care Provider] - Time of Disposition: 19:03
== END 2024-09-04 19:14 | disposition home or self-care (01) ==
PROVIDERS: Emergency Provider Physician Assistant; PCP Internal Medicine
DX: S61.012A Laceration without foreign body of left thumb without damage to nail, initial encounter (principal); I10 Essential (primary) hypertension; N40.0 Benign prostatic hyperplasia without lower urinary tract symptoms; K21.9 Gastro-esophageal reflux disease without esophagitis; Z86.0100 Personal history of colon polyps, unspecified; Z87.891 Personal history of nicotine dependence; W26.0XXA Contact with knife, initial encounter; Y93.G1 Activity, food preparation and clean up
CPT/HCPCS: 12001; 99282

== ENCOUNTER 2024-09-05 14:30 | Emergency (ER) | payer OTHER, SELFPAY ==
[2024-09-05 14:34] VITALS: BP 153/91; PULSE 76; RESP 16; TEMP 36.5; O2SAT 100
--- NOTE | 2024-09-05 14:45 | ED.GENADULT ---
HPI - General Adult General Chief complaint: Unspecified Stated complaint: Tetanus Shot Time Seen by Provider: 09/05/24 14:45 Source: patient Mode of arrival: ambulatory Limitations: no limitations History of Present Illness HPI narrative: 69-year-old male patient presents to the [facility] with request for tetanus shot. Patient was in [place] ER yesterday and had stitches to the left thumb due to cutting it with a knife while. Vegetables. Patient states it was mentioned at another urgent care that he should get an updated tetanus shot but did not receive 1 in the ER yesterday. The nurse did look up his status and he was due in 2020. Related Data Home Medications Medication Instructions Recorded Confirmed amlodipine 5 mg tablet 5 mg PO DAILY 05/18/20 02/17/23 tamsulosin 0.4 mg capsule 0.4 mg PO DAILY 05/18/20 02/17/23 Allergies Allergy/AdvReac Type Severity Reaction Status Date / Time codeine Allergy Severe Rash Verified 09/04/24 18:04 Review of Systems Review of Systems: CONSTITUTIONAL: Denies fever, chills, or sweats. EYES: Denies visual changes, redness, or discharge. ENT: Denies rhinorrhea, congestion, sore throat, or otalgia. CARDIOVASCULAR: Denies chest pain, palpitations, or edema. RESPIRATORY: Denies cough or dyspnea. GASTROINTESTINAL: Denies abdominal pain, nausea, vomiting, or diarrhea. GENITOURINARY: Denies dysuria or hematuria. SKIN: Denies rash or itching. Positive sutures intact to left thumb laceration MUSCULOSKELETAL: Denies back pain, joint pain, or myalgia. NEUROLOGIC: Denies headache, numbness, or weakness. PSYCHIATRIC: Denies anxiety or depression. [facility] Past Medical History Medical History Abnormal colonoscopy BPH (benign prostatic hyperplasia) GERD with esophagitis HTN (hypertension), malignant Hypertension Small bowel obstruction Surgical History Surgical History H/O endoscopy H/O rectal polypectomy S/P right inguinal herniorrhaphy done robotically. Family History Family History Mother Hypertension Cerebrovascular accident Family history of Alzheimer's disease Father Malignant neoplasm of prostate Sibling Family history of malignant neoplasm of testis Social History Social History Social History: the patient use of a but 1 time as well. He denies any alcohol marijuana or illicit drug use. 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 He is and has a significant other. He does not have a power attorney lawyer Listed but is a full code. Smoking status: Former smoker Smoking end date: 11/10/90 Alcohol intake: former Substance use: never Gender identity (if verbalized by the patient): Male Spiritual care concerns: No Comments At the time of my signature I agree with nursing past medical history, surgical, social, and family history. There is no relevant family history pertinent to the presenting complaint. Exam Narrative: GENERAL: Well-appearing, well-nourished, and in no acute distress. HEAD: Normocephalic, atraumatic. EYES: PERRLA and EOMI. ENT: Nares clear, no rhinorrhea or epistaxis. Mucous membranes moist. NECK: Supple. No lymphadenopathy CHEST: Clear to auscultation. No respiratory distress. HEART: Regular rate and rhythm. No murmur heard. Normal peripheral pulses. ABDOMEN: Soft, nontender, nondistended, normal active bowel sounds. EXTREMITIES: Normal range of motion. No edema. SKIN: Warm, dry, no rash. patient has intact sutures noted to the left thumb with a Steri-Strips noted over the nail. There is some surrounding ecchymosis and erythema but no discharge present. Patient has good range of motion of the distal portion of the thumb. NEURO: No focal deficits. Alert and oriented x3. Course Course Level of Care: Express Care Visit Vital Signs Vital signs: Vital Signs Temperature 36.5 C 09/05/24 14:34 Pulse Rate 76 09/05/24 14:34 Respiratory Rate 16 09/05/24 14:34 Blood Pressure 153/91 H 09/05/24 14:34 Pulse Oximetry 100 09/05/24 14:34 Temperature 36.5 C 09/05/24 14:34 Pulse Rate 76 09/05/24 14:34 Respiratory Rate 16 09/05/24 14:34 Blood Pressure 153/91 H 09/05/24 14:34 Pulse Oximetry 100 09/05/24 14:34 Vital signs reviewed. The patient has been informed that they may have pre-hypertension or Hypertension based on a BP reading in the department. I recommend that the patient call the primary care provider listed on their discharge instructions or a physician of their choice this week to arrange follow up for further evaluation of possible pre-hypertension or Hypertension Medical Decision Making MDM Narrative Medical decision making narrative: Will update his tetanus shot today. Discussed with him about suture and wound care important keep the wound clean and do not soak it and into any water. Antibiotic ointment and Band-Aid was applied to the left thumb wound area prior to discharge. Differential Diagnosis Differential Diagnosis: Differential diagnosis: Abscess, cellulitis, hidradenitis, laceration, puncture wound. Vital Signs Vital Signs: Vital Signs Temperature 36.5 C 09/05/24 14:34 Pulse Rate 76 09/05/24 14:34 Respiratory Rate 16 09/05/24 14:34 Blood Pressure 153/91 H 09/05/24 14:34 Pulse Oximetry 100 09/05/24 14:34 Temperature 36.5 C 09/05/24 14:34 Pulse Rate 76 09/05/24 14:34 Respiratory Rate 16 09/05/24 14:34 Blood Pressure 153/91 H 09/05/24 14:34 Pulse Oximetry 100 09/05/24 14:34 Critical Care Time Critical Care Time Critical Care Time: No Discharge Plan Discharge Clinical Impression: Tetanus toxoid vaccination administered at current visit, Encounter for post-traumatic wound check Patient Disposition: Home, Self-Care Condition: Stable Instructions: Antibiotic Form, Tetanus Toxoid (By injection) Additional Instructions: -Keep the dressing clean and dry for 1-2days; then you may gently clean with soap and water whenever you take a shower; however no continuous water contact like dishes or swimming. Getting them too wet can slow down healing and raise your chance of getting an infection. After you wash your stitches or celina, pat them dry and put an antibiotic ointment on them. -watch for signs of infection including: redness or swelling around the cut, or pus drains from the cut. It is normal for clear yellow fluid to drain from the cut in the first few days. -follow up with PCP for suture/staple in removal 7-10 days Prescriptions: No Action amlodipine 5 mg tablet 5 mg PO DAILY tamsulosin 0.4 mg capsule 0.4 mg PO DAILY omeprazole 20 mg capsule,delayed release(DR/EC) See Rx Instructions .ROUTE .COMPLEX Qty: 90 3RF Dose Instruction: TAKE 1 CAPSULE BY MOUTH EVERY DAY Rx Instructions: TAKE 1 CAPSULE BY MOUTH EVERY DAY Follow-up/Referrals: Caden,Wili Liao MD [Primary Care Provider] - Time of Disposition: 14:55
[2024-09-05] MEDS: TETANUS,DIPHTHERIA,AC PERTUSSIS ADULT (0.5 ML) BOOSTRIX IM (15:00)
== END 2024-09-05 15:04 | disposition home or self-care (01) ==
PROVIDERS: Emergency Provider Nurse Practitioner Family; PCP Internal Medicine
DX: Z23 Encounter for immunization (principal); S61.012A Laceration without foreign body of left thumb without damage to nail, initial encounter; W26.0XXA Contact with knife, initial encounter; Z87.891 Personal history of nicotine dependence; N40.0 Benign prostatic hyperplasia without lower urinary tract symptoms; I10 Essential (primary) hypertension; K21.00 Gastro-esophageal reflux disease with esophagitis, without bleeding
CPT/HCPCS: 90471; 90715; 99212; G0463

== ENCOUNTER 2024-09-11 18:01 | Emergency (ER) | payer OTHER, SELFPAY ==
[2024-09-11 18:19] VITALS: BP 125/83; PULSE 79; RESP 16; TEMP 36.6; O2SAT 98
--- NOTE | 2024-09-11 18:27 | ED_ITS ---
HPI - Wound/Laceration General Chief Complaint: Wound/Laceration Stated Complaint: had stitches, wants area checked Time Seen by Provider: 09/11/24 18:29 Source: patient Mode of arrival: ambulatory Limitations: no limitations History of Present Illness HPI narrative: 69-year-old male presented for wound check. Reports on 09/04, 3 sutures were placed for laceration to the left thumb along with a steri strip over the portion of laceration next to the nail that could not be sutured. Since then he has had no complications. States the Steri-Strip fell off today. Denies pain, drainage, swelling, or redness to the site. Says the area around the laceration is numb. Scheduled with pcp in 3 days for suture removal. Related Data Home Medications Medication Instructions Recorded Confirmed amlodipine 5 mg tablet 5 mg PO DAILY 05/18/20 09/11/24 tamsulosin 0.4 mg capsule 0.4 mg PO DAILY 05/18/20 09/11/24 losartan 100 mg tablet 100 mg PO DAILY 09/11/24 09/11/24 Allergies Allergy/AdvReac Type Severity Reaction Status Date / Time codeine Allergy Severe Rash Verified 09/11/24 18:23 Review of Systems Review of Systems: CONSTITUTIONAL: Denies body aches, fever, chills, or sweats. EYES: Denies visual changes, redness, or discharge. CARDIOVASCULAR: Denies chest pain, palpitations, or edema. RESPIRATORY: Denies cough or dyspnea. SKIN: per HPI MUSCULOSKELETAL: Denies back pain, joint pain, or myalgia. [facility] Past Medical History Medical History Abnormal colonoscopy BPH (benign prostatic hyperplasia) GERD with esophagitis HTN (hypertension), malignant Hypertension Small bowel obstruction Surgical History Surgical History H/O endoscopy H/O rectal polypectomy S/P right inguinal herniorrhaphy done robotically. Family History Family History Mother Hypertension Cerebrovascular accident Family history of Alzheimer's disease Father Malignant neoplasm of prostate Sibling Family history of malignant neoplasm of testis Social History Social History (Reviewed 09/11/24 @ 18:42 by WALKER Paul Social History: the patient use of a but 1 time as well. He denies any alcohol marijuana or illicit drug use. 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 He is and has a significant other. He does not have a power disability attorney Listed but is a full code. Smoking status: Former smoker Smoking end date: 11/10/90 Alcohol intake: former Substance use: never Gender identity (if verbalized by the patient): Male Spiritual care concerns: No Comments At time of signature, I have reviewed and agree with nursing past medical, surgical, social and family history unless otherwise noted. Please see nursing chart for further information. There is no relevant family history pertinent to the presenting complaint Exam Narrative: GENERAL: Well-appearing ENT: Mucous membranes moist. Oropharynx without edema, erythema or lesions. CHEST: Clear to auscultation. HEART: Regular rate and rhythm. SKIN: Warm, dry. Laceration wound to the left thumb appears healing well, [address]. Wound area to the ulnar side of the thumbnail appears healing well, wound bed is red, dry, no gaping. No surrounding erythema, warmth, tenderness or purulent drainage noted. Normal ROM. Cap refill <3seconds. NEURO: Alert and oriented x3. Course Course Emergency Course: Patient is aware of diagnosis, understands and agrees to treatment plan. Anticipatory guidance given. Patient agrees to follow-up as directed and is aware of reasons to seek care at the emergency department. Portions of this record may have been created with voice recognition software Level of Care: Express Care Visit Vital Signs Vital signs: Vital Signs Temperature 97.8 F 09/11/24 18:19 Pulse Rate 79 09/11/24 18:19 Respiratory Rate 16 09/11/24 18:19 Blood Pressure 125/83 09/11/24 18:19 Pulse Oximetry 98 09/11/24 18:19 Temperature 97.8 F 09/11/24 18:19 Pulse Rate 79 09/11/24 18:19 Respiratory Rate 16 09/11/24 18:19 Blood Pressure 125/83 09/11/24 18:19 Pulse Oximetry 98 09/11/24 18:19 Reviewed MDM - Wound/Laceration MDM Narrative Medical decision making narrative: Discussed physical exam findings, left thumb wound appears to be healing well. site cleansed with skintegrity and advised to leave open to air and follow-up with PCP as scheduled this week. Advised supportive measures and signs/symptoms to go to the ER. Pt is appropriate for outpt treatment and f/u. Differential Diagnosis Differential diagnosis: Likely laceration, abscess, abrasion and avulsion of skin Discharge Plan Discharge Clinical Impression: Encounter for re-check of laceration wound Patient Disposition: Home, Self-Care Condition: Stable Instructions: Antibiotic Form, Care For Your Stitches (ED) Additional Instructions: Keep the area clean and dry - cleanse with warm water and mild soap and allow to fully dry. Ok to apply neosporin to the site Keep it open to air (no bandages) Watch for worsening symptoms including pain, redness, swelling, streaking, pus/drainage, fever. Go to the ER with any of these symptoms or concerns. Follow up with primary care provider as scheduled this week Prescriptions: No Action losartan 100 mg tablet 100 mg PO DAILY amlodipine 5 mg tablet 5 mg PO DAILY tamsulosin 0.4 mg capsule 0.4 mg PO DAILY omeprazole 20 mg capsule,delayed release(DR/EC) See Rx Instructions .ROUTE .COMPLEX Qty: 90 3RF Dose Instruction: TAKE 1 CAPSULE BY MOUTH EVERY DAY Rx Instructions: TAKE 1 CAPSULE BY MOUTH EVERY DAY Follow-up/Referrals: Caden,Wili Liao MD [Primary Care Provider] -
== END 2024-09-11 18:44 | disposition home or self-care (01) ==
PROVIDERS: Emergency Provider Nurse Practitioner Family; PCP Internal Medicine
DX: Z48.01 Encounter for change or removal of surgical wound dressing (principal); Z87.891 Personal history of nicotine dependence; N40.0 Benign prostatic hyperplasia without lower urinary tract symptoms; I10 Essential (primary) hypertension; K21.00 Gastro-esophageal reflux disease with esophagitis, without bleeding
CPT/HCPCS: 99211; G0463

== ENCOUNTER 2025-05-23 15:55 | Outpatient (CLI) | payer OTHER, SELFPAY ==
--- NOTE | ~2025-05-23 | XR_ITS ---
EXAM: XR foot RT min 3V DATE: 05/23/2025 16:15 HISTORY: Dorsal Rt foot pain x 3 days, no injury . COMPARISON: None available. FINDINGS: Normal mineralization. No fracture or dislocation. No lytic or blastic lesion. Mild scatte red degenerative changes. No erosion or periosteal change. Soft tissues within normal limits. IMPRESSION: No acute osseous finding in the right foot. Reviewed, dictated and finalized at [facility].
== END 2025-05-23 15:56 | disposition home or self-care (01) ==
LOC: GOSHIMG 15:56
PROVIDERS: PCP Internal Medicine; Visit Provider Internal Medicine
DX: M79.671 Pain in right foot (principal)
CPT/HCPCS: 73630

== ENCOUNTER 2025-06-10 11:08 | Outpatient (CLI) | payer OTHER, SELFPAY ==
--- NOTE | ~2025-06-10 | MR_ITS ---
MRI of the right foot CLINICAL HISTORY: Pain TECHNIQUE: Axial proton-density and proton-density fat-sat images, sagittal T1-weighted and STIR imag es, and coronal T1-weighted and proton-density fat-sat images were performed. FINDINGS: There is no acute fracture or acute bone marrow signal abnormality. There is focal cystic c hange in the distal aspect of the first metatarsal, compatible with a chronic benign finding. Joint s paces in the visualized forefoot/midfoot are unremarkable. No joint effusion seen. Collateral ligamen ts appear intact. Lisfranc ligament intact. Flexor and extensor tendons are intact. No intermetatarsal bursitis or West's neuroma. No soft tiss ue mass or fluid collection seen. IMPRESSION: No significant abnormality identified. Reviewed, dictated and finalized at [facility].
== END 2025-06-10 11:09 | disposition home or self-care (01) ==
LOC: MICIMG 11:10
PROVIDERS: PCP Internal Medicine; Visit Provider Internal Medicine
DX: M79.671 Pain in right foot (principal)
CPT/HCPCS: 73718

== ENCOUNTER 2025-08-05 01:20 | Day surgery (SDC) | payer OTHER, SELFPAY ==
[2025-07-25 13:17] VITALS: BMI 25.2
--- OUTSIDE RECORDS SUMMARY | 2025-08-05 01:24 | XMS_ITS | Clinical Summary ---
Author Organization [facility] Address [address] [place] [address] Care Team Providers Care Technical Writer And Editor Name Role Phone Wili Negrete MD Primary Care Provider Allergies No known active allergies Medications amLODIPine (NORVASC) 5 mg tablet Take 1 tablet (5 mg total) by mouth daily 2 Active hydroCHLOROthia zide (HYDRODIURIL) 12.5 mg tablet Take 1 tablet (12.5 mg total) by mouth daily 2 Active omeprazole (PriLOSEC) 20 mg capsule Take by mouth daily 2 Active tamsulosin (FLOMAX) 0.4 mg extended release capsule TAKE 1 CAPSULE BY MOUTH EVERYDAY AT BEDTIME 2 Active tadalafiL (ADCIRCA) 10 mg tablet Take 1 tablet (10 mg total) by mouth daily as needed for erectile dysfunction Active acetaminophen (TYLENOL) 325 mg tablet Take 2 tablets (650 mg total) by mouth every 6 (six) hours as needed for pain Active ibuprofen 200 mg tab/cap Take by mouth every 6 (six) hours as needed for pain Active losartan (COZAAR) 100 mg tablet Take 1 tablet (100 mg total) by mouth daily 3 Active Active Problems Problem Noted Date Diagnosed Date Sensorineural hearing loss, asymmetrical 023 Tinnitus of left ear 11/21/2022 Medical History Medical History Date Comments Concussion HTN (hypertension) Tinnitus Family History Medical History Relation Name Comments Cancer Brother Hypertension Brother Cancer Father Hypertension Father Hypertension Mother Relation Name Status Comments Brother Father Mother Social History Tobacco Use Types Packs/Day Years Used Date Smoking Tobacco: Former Cigarettes Smokeless Tobacco: Never Tobacco Cessation:Counseling Given: Not Answered AUDIT-C Answer Date Recorded Frequency of Alcohol Consumption Not on file 11/21/2022 Q2: How many drinks containi ng alcohol do you have on a typical day when you are drinking? Patient does not drink Frequency of Binge Drinking Not on file 11/10 Sex and Gender Information Value Date Recorded Sex Assigned at Not on file Legal Sex Male 4:01 PM CDT Gender Identity Not on file Sexual Orientation Not on file Obstetrics History Last Filed Vital Signs Vital Sign Reading Time Taken Comments Blood Pressure 132/74 09/04/2024 5:04 PM CDT Pulse 68 09/04/2024 5:04 PM CDT Temperature 36.9 C (98.4 F) 09/04/2024 5:04 PM CDT Respiratory Rate 18 09/04/2024 5:04 PM CDT Oxygen Saturation 99% 09/04/2024 5:04 PM CDT Inhaled Oxygen Concentration - - Weight 77.1 kg (170 lb) 12/03/2024 10:25 AM PHYSICAL THERAPY NURSE Height 170.2 cm (5' 7) 12/03/2024 10:25 AM PHYSICAL THERAPY NURSE Body Mass Index 26.63 12/03/2024 10:25 AM PHYSICAL THERAPY NURSE Plan of Treatment Health Maintenance Due Date Last Done Comments Colon Cancer Screening-Colonoscopy 1955 Depression Screening 1955 Fall Risk Assessment 1955 Hepatitis C Screening 1955 Prostate Cancer Screening-PSA 1955 Hepatitis B Screening 1974 Pneumococcal vaccine 65+ (1 of 1 - PCV) 2006 DTaP/Tdap/Td Vaccine (2 - Tdap) 07/06/2011 1, 07/06/2001 Abdominal Aortic Aneurysm (A AA) Screen 2021 Well Visit 65+ 2021 Zoster Vaccine (2 of 2) 07/06/2024 05/11/2024 Covid-19 Vaccine (6 - 2024-2 6 season) 2025 08/30/2022, 04/09/2022, 04/09/2022, Additional history exists Influenza Vaccine (#1) 2025 3, 11/22/2013, 08/20/2013 Insurance [facility] [id number] [employer] Care Teams Technical Writer And Editor Relationship Specialty Start Date End Date Wili Negrete MD [address] [facility] [address] [place] [address] PCP - General 09/08/20
--- OUTSIDE RECORDS SUMMARY | 2025-08-05 01:24 | XMS_ITS | Encounter Summary ---
Author Organization [facility] Healthcare Address [address] [place] [address] Care Team Providers Care Electric Track Switch Maintainer Name Role Phone Wili Negrete MD Primary Care Provider Encounter Details Date Type Department Care Team (Late st Contact Info) Description 09/07/2020 Telephone [facility] Radiology [address] [place] [address] George Nicolas MD [address] [facility] [address] [address] [place] [address] Social History Tobacco Use Types Packs/Day Years Used Date Smoking Tobacco: Never Assessed Sex and Gender Information Value Date Recorded Sex Assigned at Not on file Legal Sex Male 4:01 PM CDT Gender Identity Not on file Sexual Orientation Not on file documented as of this encounter Plan of Treatment Not on file documented as of this encounter Visit Diagnoses Not on filedocumented in this encounter Care Teams Electric Track Switch Maintainer Relationship Specialty Start Date End Date Wili Negrete MD [address] [place] [address] PCP - General 09/08/20 documented as of this encounter
[2025-08-05 07:12] VITALS: BP 126/77; PULSE 64; RESP 18; TEMP 36.1; O2SAT 98
[2025-08-05] MEDS: LACTATED RINGERS 1,000 ML 150 ML IV CONT (07:21)
--- NOTE | 2025-08-05 08:04 | WPDANESEPPF ---
Anes - Initial Pre Proc Eval Procedure: Operation Date: 08/05/25 08:30 Proposed Procedures p Diagnostic Colonoscopy - Lm Cuellar MD Date/Time: 08/05/25 08:04 Surgeon: Lm Cuellar MD Pre Op Diagnosis: Diverticulosis of large intestine Patient Data Age: 70 Gender: M Height: 1.7 m Weight: 72.7 kg Last Vital Signs Temp 36.1 C L 08/05/25 07:12 Pulse 64 08/05/25 07:12 Resp 18 08/05/25 07:12 BP 126/77 08/05/25 07:12 Pulse Ox 98 08/05/25 07:12 O2 Del Method Room Air 08/05/25 07:12 Allergies Allergy/AdvReac Type Severity Reaction Status Date / Time codeine Allergy Severe Rash Verified 08/05/25 07:11 Home Medications ?Medication ?Instructions ?Recorded ?Confirmed ?Type amlodipine 5 mg tablet 5 mg PO DAILY 05/18/20 08/05/25 History tamsulosin 0.4 mg capsule 0.4 mg PO DAILY 05/18/20 08/05/25 History losartan 100 mg tablet 100 mg PO DAILY 09/11/24 08/05/25 History hydrochlorothiazide 12.5 mg tablet 12.5 mg PO DAILY 11/12/24 08/05/25 History omeprazole 20 mg capsule,delayed See Rx Instructions .Route 11/12/24 08/05/25 Rx release .COMPLEX #90 caps atorvastatin 20 mg tablet 20 mg PO QPM 07/25/25 08/05/25 History Patient hx anesthesia problems: none Family hx anesthesia problems: none Results Review: All pre-operative results and documents have been reviewed as part of the pre-operative evaluation. [facility] Past Medical History Medical History BPH (benign prostatic hyperplasia) HTN (hypertension), malignant Abnormal colonoscopy GERD with esophagitis Small bowel obstruction Hypertension Surgical History Surgical History H/O endoscopy H/O rectal polypectomy S/P right inguinal herniorrhaphy done robotically. Family History Family History Mother Hypertension Cerebrovascular accident Family history of Alzheimer's disease Father Malignant neoplasm of prostate Sibling Family history of malignant neoplasm of testis Social History Social History Social History: the patient use of a but 1 time as well. He denies any alcohol marijuana or illicit drug use. 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 He has a son and a daughter. He is and has a significant other. He does not have a power life enrichment manager Listed but is a full code. Years smoked: 15 Smoking status: Former smoker Tobacco type: cigarettes Smoking end date: 11/10/90 Alcohol intake: former Substance use: never Substance use type: does not use Living arrangements: alone Gender identity (if verbalized by the patient): Male Spiritual care concerns: No Anes - Eval Final PreProcedure Day of Procedure 08/05/25 08:04 Patient weight: normal Heart: regular rate and rhythm Lungs: decreased breath sounds Airway: Mallampati scale class II Neurological: alert and oriented Last oral intake: >/= 8 hours ASA classification: III Emergent: no Anesthetic plan: proceed Anesthesia type and monitoring: general GIVS and standard monitoring Results Review: All pre-operative results and documents have been reviewed as part of the pre-operative evaluation. Informed Consent: The patient's anesthetic plan and its attendant risks and benefits were discussed with the patient/family/POA. Questions were solicited and answers provided to the satisfaction of the patient/family/POA.
--- NOTE | 2025-08-05 08:19 | PM.HPGS ---
History of Present Illness History of Present Illness Consent: Risks, benefits, and alternatives have been discussed and questions answered. Patient agrees to proceed with procedure. Chief complaint: Diverticulosis of large intestine Narrative: Justin Jensen is a 70 year old male with last colonoscopy in 2019 Review of Systems Review of Systems: All systems reviewed & are unremarkable except as noted in HPI and below PMFSH Past Medical History Medical History (Updated 08/05/25 @ 08:20 by Lm Cuellar MD) Colon cancer screening BPH (benign prostatic hyperplasia) HTN (hypertension), malignant Abnormal colonoscopy GERD with esophagitis Small bowel obstruction Hypertension Surgical History Surgical History H/O endoscopy H/O rectal polypectomy S/P right inguinal herniorrhaphy done robotically. Family History Family History Mother Hypertension Cerebrovascular accident Family history of Alzheimer's disease Father Malignant neoplasm of prostate Sibling Family history of malignant neoplasm of testis Social History Social History Social History: the patient use of a but 1 time as well. He denies any alcohol marijuana or illicit drug use. 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 He is and has a significant other. He does not have a power claim attorney Listed but is a full code. Years smoked: 15 Smoking status: Former smoker Tobacco type: cigarettes Smoking end date: 11/10/90 Alcohol intake: former Substance use: never Substance use type: does not use Living arrangements: alone Gender identity (if verbalized by the patient): Male Spiritual care concerns: No Meds Home Medications and Allergies Home Medications ?Medication ?Instructions ?Recorded ?Confirmed ?Type amlodipine 5 mg tablet 5 mg PO DAILY 05/18/20 08/05/25 History tamsulosin 0.4 mg capsule 0.4 mg PO DAILY 05/18/20 08/05/25 History losartan 100 mg tablet 100 mg PO DAILY 09/11/24 08/05/25 History hydrochlorothiazide 12.5 mg tablet 12.5 mg PO DAILY 11/12/24 08/05/25 History omeprazole 20 mg capsule,delayed See Rx Instructions .Route 11/12/24 08/05/25 Rx release .COMPLEX #90 caps atorvastatin 20 mg tablet 20 mg PO QPM 07/25/25 08/05/25 History Allergies Allergy/AdvReac Type Severity Reaction Status Date / Time codeine Allergy Severe Rash Verified 08/05/25 07:11 Vital Signs Vital Signs - 24 hr 08/05/25 07:12 Temperature 97 F L Pulse Rate 64 Respiratory Rate 18 Blood Pressure 126/77 Pulse Oximetry 98 Oxygen Delivery Room Air Exam Const: General: comfortable and no acute distress HENMT: Face/Nose/Sinus: Normal nares present Eyes: General: appearance normal, both eyes and all related structures Resp: Auscultation: clear to auscultation bilaterally Cardio: Rate: regular rate Rhythm: regular rhythm GI: Inspection: non-distended GI Palp: Yes Soft to palpation Skin: General skin exam: normal color Neuro: Speech: normal speech Extrem: General: normal to inspection Psych: Mental Status: mental status grossly normal Assessment and Plan Assessment and plan (1) Colon cancer screening: Code(s): Z12.11 - Encounter for screening for malignant neoplasm of colon Status: Acute Assessment and Plan: colonoscopy
--- NOTE | 2025-08-05 08:36 | S_PTH ---
PATIENT: Justin Jensen LOC: [facility]#:[id number] AGE/SX: 70/M ROOM: RE08/05/[address]: Lm Cuellar MD : 1955 BED: DIS: 08/05/2025 SPEC #: [id number] RECD: 08/05/25 10:21 STATUS: CUCO REManfred #: [id number] JACINTO: 08/05/25 08:[address]: Lm Cuellar DEPT: [facility] RECD BY: Sabrina Gonzalez ENTERED: 08/05/25 10:21 SP TYPE: Surgical OTHR DR: Wili NegreteMD Tissues: A - Colon Polypectomy B - Colon Polypectomy Procedures: Hematoxylin and Eosin Stain Gross and Microscopic Level 4
[2025-08-05 08:39] VITALS: BP 99/59; PULSE 63; RESP 15; O2SAT 99
[2025-08-05 08:49] VITALS: BP 96/62; PULSE 60; RESP 15; O2SAT 97
[2025-08-05 08:59] VITALS: BP 106/69; PULSE 64; RESP 15; O2SAT 97
== END 2025-08-05 09:10 | disposition home or self-care (01) ==
PROVIDERS: PCP Internal Medicine; Referring Provider Internal Medicine; Visit Provider Internal Medicine Gastroenterology
PROC: 0DJD8ZZ Inspection of Lower Intestinal Tract, Via Natural or Artificial Opening Endoscopic (ICD-10-PCS; CPT 45378; principal; 2025-08-05 08:30)
DX: Z12.11 Encounter for screening for malignant neoplasm of colon (principal); D12.2 Benign neoplasm of ascending colon; D12.3 Benign neoplasm of transverse colon; K63.5 Polyp of colon; K64.8 Other hemorrhoids; K57.30 Diverticulosis of large intestine without perforation or abscess without bleeding; I10 Essential (primary) hypertension; K21.9 Gastro-esophageal reflux disease without esophagitis; N40.0 Benign prostatic hyperplasia without lower urinary tract symptoms; Z98.890 Other specified postprocedural states; Z87.891 Personal history of nicotine dependence; Z87.19 Personal history of other diseases of the digestive system; Z80.42 Family history of malignant neoplasm of prostate; Z80.43 Family history of malignant neoplasm of testis
CPT/HCPCS: 45380; 45385; 88305; J2003; J2704; J7120

== ENCOUNTER 2025-10-03 15:15 | Outpatient (CLI) | payer OTHER, SELFPAY ==
--- NOTE | ~2025-10-03 | XR_ITS ---
EXAMINATION: XR hand BI arthritis min 3V, 10/03/2025 15:20 MANAGER PRODUCT MANAGEMENT HISTORY: M79.641 - Pain in right hand COMPARISON: No comparisons available. Findings: No acute fracture or malalignment. No significant degenerative changes. Soft tissues unremarkable. Impression: No acute fracture or malalignment. Reviewed, dictated and finalized at location P. GER PRODUCT MANAGEMENT Impression: No acute fracture or malalignment.
--- OUTSIDE RECORDS SUMMARY | 2025-10-03 17:54 | XMS_ITS | Encounter Summary ---
Author Organization [facility] Healthcare Address [address] [place] [address] Care Team Providers Care Cook Dessert Name Role Phone Wili Negrete MD Primary Care Provider Encounter Details Date Type Department Care Team (Late st Contact Info) Description 09/07/2020 Telephone [facility] Radiology [address] [place] [address] George Nicolas MD [address] [place] [address] Social History Tobacco Use Types Packs/Day Years [...] on filedocumented in this encounter Care Teams Cook Dessert Relationship Specialty Start Date End Date Wili Negrete MD [address] [place] [address] PCP - General 09/08/20 documented as of this encounter
--- OUTSIDE RECORDS SUMMARY | 2025-10-03 17:54 | XMS_ITS | Data Portability ---
Author Organization [place] [facility] [employer], Main Office Address [address] [place] [address] Assessment No assessment recorded. Plan of Treatment Reminders Order Date Submit Date Provider Last Modified By Organization Details Last Modified Time Details Appointments None recorded. Lab ERIN + rf (antinuclea r antibodies + rheumatoid factor), quantitativ e, serum 2024 [employer] [facility], [address], [place], [address], 14:45:52 C-reactive protein, quantitativ e, serum or plasma 2024 025 [employer], [address], [place], [address], 14:45:50 dsDNA Ab, serum 2024 025 [employer] [facility], [address], [place], [address], 14:45:48 scleroderma (scl-70) Ab, serum 2024 025 [employer] [facility], [address], [place], [address], 5 14:45:51 ccp (cyclic citrullinat ed peptide) iga+igg, serum 2024 025 [employer] [facility], [address], [place], [address], 5 14:45:49 sjogren antibody panel (ssa, ssb, ro, la), serum 2024 025 [employer] [facility], [address], [place], [address], 5 14:45:51 Muniz MARCOS Ab + [facility] Ab, quant immunoassay , serum 2024 025 [employer] [facility], [address], [place], [address], 5 14:45:49 uric acid, serum or plasma 2024 025 [employer] [facility], [address], [place], [address], 5 14:45:48 PSA, serum or plasma 2024 025 [employer] [facility], [address], [place], [address], 5 04:50:13 CBC w/ auto diff 2024 025 [employer] [facility], [address], [place], [address], 5 04:50:11 CMP, serum or plasma 2024 025 [employer] [facility], [address], [place], [address], 5 04:50:10 lipid panel, serum 2024 025 [employer] [facility], [address], [place], [address], 5 04:50:08 TSH, serum or plasma 2024 025 [employer] [facility], [address], [place], [address], 5 04:50:15 T4, free, serum 2024 025 [employer] [facility], [address], [place], [address], 5 04:50:14 PSA, serum or plasma 2023 024 [email or web address] [employer] [facility], [address], [place], [address], 4 16:42:54 vitamin B12, serum 2023 024 [employer] [facility], [address], [place], [address], 4 14:52:53 magnesium, serum or plasma 2023 024 [employer] [facility], [address], [place], [address], 4 14:06:01 CBC w/ auto diff 2023 024 [employer] [facility], [address], [place], [address], 4 13:56:55 CMP, serum or plasma 2023 024 [employer] [facility], [address], [place], [address], 4 14:05:48 lipid panel, serum 2023 024 [employer] [facility], [address], [place], [address], 4 14:05:56 TSH, serum or plasma 2023 024 [employer] [facility], [address], [place], [address], 4 14:39:12 T4, free, serum 2023 [employer] [facility], [address], [place], [address], 14:31:15 Referral None recorded. Procedures None recorded. Surgeries None recorded. Imaging None recorded. Medication Orders cephalexin 500 mg capsule 2023 [email or web address] #[id number], [address] [place], [address], 10:22:41 Patient TargetsNo targets recorded. Patient Instructions Encounter Date Encounter Id Patient Instructions Last Modified By Organization Details Last Modified Time 05/11/2024 [id number] risk assessment* [email or web address] Not availabl e 05/11/2024 14:42:47 Personalized [facility] Plan and Screening Recommendations Advance Directives - Do you have one? Advance Directives - Do we have your advance directive on file in your health record? Primary Prevention/Interven tion (prevents or decreases the chance of common diseases from occurring) Smoking Risk: Non Smoker Alcohol Misuse Screening: Negative Weight: Overweight Physical activity: Need more exercise/physical activity Nutrition: Average Eat heart healthy diet Fall Risk (screened today): Low Vaccines Pneumococcal: Influenza: Your next one in the fall of this year Chronic Disease Risks Stroke: Intermediate Risk Active diagnosis, Continue current treatment plan Heart Attack: Low risk I have no recommendations Clogging of the Arteries: Low risk I have no recommendations Diabetes: Low Risk I have no recommendations Secondary Prevention/Interven tion (detects treatable diseases before they may cause symptoms, disability, or ) Prostate Cancer Screening: recommended Colon Cancer Screening: Colonoscopy due 2024 Date Screening Last Performed: __2019 Eye Disease Screening: Your next exam in: goes yearly Dementia Risk: Low I have no recommendations Depression Screening: Negative I have no recommendations [email or web address] Not available 05/11/2024 14:37:00 Wellness evaluat ion risk assessment stable. Follow-up for essential hypertension, history of diverticulitis and GERD all clinically stable. Will check blood work consisting of CBC, CMP, lipid, thyroid, B12, magnesium and PSA. Follow-up in six months. Was also given a Shingrix shot today. Keep Appointment: Fri 03:00 PM [place] Portions of the record may have been created with voice recognition software. Occasional wrong-word or s ound-a-like substitutions may have occurred due to the inherent limitations of voice recognition software. Read the chart carefully and recognize, using context, where substitutions have occurred. [email or web address] Not available 05/11/2024 14:42:28 06/23/2024 [id number] Sialadenitis. Wi ll give a trial some Keflex 500 mg q.i.d. For 10 days. If no improvement may need to consider ENT evaluation possible radiographic studies. Keep Appointment: Fri 10:50 AM [place] Portions of the record may have been created with voice recognition software. Occasional wrong-word or s ound-a-like substitutions may have occurred due to the inherent limitations of voice recognition software. Read the chart carefully and recognize, using context, where substitutions have occurred. [email or web address] Not available 06/23/2024 10:52:51 09/14/2024 [id number] Laceration with sutures left thumb clinically doing well no need for further evaluation keep previous appointment and follow-up in November. Keep Appointment: Fri 10:50 AM [place] Portions of the record may have been created with voice recognition software. Occasional wrong-word or s ound-a-like substitutions may have occurred due to the inherent limitations of voice recognition software. Read the chart carefully and recognize, using context, where substitutions have occurred. [email or web address] Not available 09/14/2024 10:34:13 05/26/2025 [id number] Well adult examination risk assessment stable. Follow-up for essential hypertension history of diverticulitis in the right foot pain as mentioned above. Plan to check blood work consisting of CBC, CMP, lipid and PSA. Does need a follow-up colonoscopy. Will try to get a limited MRI scan of the foot throughout the possibility of a stress fracture. Otherwise is clinically stable. Follow-up in six months Advised on FDA Recommended Immunizations including but not limited to Influenza, COVID,Tetanus,TDAP, Pneumococcal,RSV and Shingles Additional Orders - Directives - Recommendations 1. Needs a follow-up five year colonoscopy 2. MRI without contrast of the right foot possible stress fracture Follow Up: 6 Months Approximate Date: 11/22/2025 Portions of record are template driven. When necessary additional context will be provided. Additionally some portions have been created with voice recognition software. Occasional wrong-word or s ound-a-like substitutions may have occurred due to the inherent limitations of voice recognition software. Read the chart carefully and recognize, using context, where substitutions may have occurred. Created: Wili Negrete M.D. 05.26.2025 10:21 AM [email or web address] Not available 05/26/2025 11:21:59 09/08/2025 [id number] Arthritic nodule s on the hands. Will check some rheumatoid panel further assess. May need to set up with a hand surgeon for further evaluation possible biopsy Keep Appointment: Fri 09:50 AM [email or web address] Portions of record are template driven. When necessary additional context will be provided. Additionally some portions have been created with voice recognition software. Occasional wrong-word or s ound-a-like substitutions may have occurred due to the inherent limitations of voice recognition software. Read the chart carefully and recognize, using context, where substitutions may have occurred. Created: Wili Negrete M.D. 09.08.2025 01:44 PM Not available 09/08/2025 14:44:46 Reason for Referral None Reported. Results Created Date Observation Date Name Description Value Unit Range Abnormal Flag Note LastModifiedBy Organization Detail LastModifiedTime 05/12/20 24 05/12/2024 CBC/C OMPLE TE BLD COUNT W/DIF F white blood cells 11.4 x10'3 /uL 4.2-10 .8 high Not Available [facility] (Lab) [address] [place], [address], 05/12/2024 13:56:55 05/12/20 24 05/12/2024 CBC/C OMPLE TE BLD COUNT W/DIF F red blood cells 4.52 x10'6 /uL 4.10-5 .80 Not Available [facility] (Lab) [address] [place], [address], 05/12/2024 13:56:55 05/12/20 24 05/12/2024 CBC/C OMPLE TE BLD COUNT W/DIF F hemoglobin 14.0 g/dL 13.2-1 7.0 Not Available [facility] (Lab) [address] [place], [address], 05/12/2024 13:56:55 05/12/20 24 05/12/2024 CBC/C OMPLE TE BLD COUNT W/DIF F hematocrit 41.6 % 39.3-5 0.0 Not Available [facility] (Lab) [address] [place], [address], 05/12/2024 13:56:55 05/12/20 24 05/12/2024 CBC/C OMPLE TE BLD COUNT W/DIF F mean red cell volume 92.0 fL 80.0-9 7.0 Not Available [facility] (Lab) [address] [place], [address], 05/12/2024 13:56:55 05/12/20 24 05/12/2024 CBC/C OMPLE TE BLD COUNT W/DIF F mean red cell hemoglobin 31.0 pg 27.0-3 3.0 Not Available [facility] (Lab) [address] [place], [address], 05/12/2024 13:56:55 05/12/20 24 05/12/2024 CBC/C OMPLE TE BLD COUNT W/DIF F mean RBC HGB concentratio n 33.7 g/dL 31.0-3 6.0 Not Available [facility] (Lab) [address] [place], [address], 05/12/2024 13:56:55 05/12/20 24 05/12/2024 CBC/C OMPLE TE BLD COUNT W/DIF F red cell distribution width 13.1 % 11.8-1 5.5 Not Available [facility] (Lab) [address] [place], [address], 05/12/2024 13:56:55 05/12/20 24 05/12/2024 CBC/C OMPLE TE BLD COUNT W/DIF F platelets 291 x10'3 /uL 150-40 0 Not Available [facility] (Lab) [address] [place], [address], 05/12/2024 13:56:55 05/12/20 24 05/12/2024 CBC/C OMPLE TE BLD COUNT W/DIF F mean platelet volume 10.5 fL 9.0-12 .4 Not Available [facility] (Lab) [address] [place], [address], 05/12/2024 13:56:55 05/12/20 24 05/12/2024 CBC/C OMPLE TE BLD COUNT W/DIF F neutrophils 81.4 % 39.0-7 2.0 high Not Available [facility] (Lab) [address] [place], [address], 05/12/2024 13:56:55 05/12/20 24 05/12/2024 CBC/C OMPLE TE BLD COUNT W/DIF F lymphocytes 8.3 % 16.0-4 7.0 low Not Available [facility] (Lab) [address] [place], [address], 05/12/2024 13:56:55 05/12/20 24 05/12/2024 CBC/C OMPLE TE BLD COUNT W/DIF F monocytes 8.3 % 5.0-12 .0 Not Available [facility] (Lab) [address] [place], [address], 05/12/2024 13:56:55 05/12/20 24 05/12/2024 CBC/C OMPLE TE BLD COUNT W/DIF F eosinophils 0.9 % 1.0-7. 0 low Not Available [facility] (Lab) [address] [place], [address], 05/12/2024 13:56:55 05/12/20 24 05/12/2024 CBC/C OMPLE TE BLD COUNT W/DIF F basophils 0.7 % 0.0-2. 0 Not Available [facility] (Lab) [address] [place], [address], 05/12/2024 13:56:55 05/12/20 24 05/12/2024 CBC/C OMPLE TE BLD COUNT W/DIF F immature granulocytes 0.4 % 0.00-0 .50 Not Available [facility] (Lab) [address] [place], [address], 05/12/2024 13:56:55 05/12/20 24 05/12/2024 CBC/C OMPLE TE BLD COUNT W/DIF F neutrophils, absolute count 9.29 x10'3 /uL 1.5-8. 0 high Not Available [facility] (Lab) [address] [place], [address], 05/12/2024 13:56:55 05/12/20 24 05/12/2024 CBC/C OMPLE TE BLD COUNT W/DIF F lymphocytes, absolute count 0.95 x10'3 /uL 1.07-3 .43 low Not Available [facility] (Lab) [address] [place], [address], 05/12/2024 13:56:55 05/12/20 24 05/12/2024 CBC/C OMPLE TE BLD COUNT W/DIF F monocytes, absolute count 0.95 x10'3 /uL 0.29-0 .99 Not Available [facility] (Lab) [address] [place], [address], 05/12/2024 13:56:55 05/12/20 24 05/12/2024 CBC/C OMPLE TE BLD COUNT W/DIF F eosinophils, absolute count 0.10 x10'3 /uL 0.02-0 .53 Not Available [facility] (Lab) [address] [place], [address], 05/12/2024 13:56:55 05/12/20 24 05/12/2024 CBC/C OMPLE TE BLD COUNT W/DIF F basophils, absolute count 0.08 x10'3 /uL 0.01-0 .08 Not Available [facility] (Lab) [address] [place], [address], 05/12/2024 13:56:55 05/12/20 24 05/12/2024 CBC/C OMPLE TE BLD COUNT W/DIF F immature granulocytes ,absolute 0.05 x10'3 /uL 0.00-0 .05 Not Available [facility] (Lab) [address] [place], [address], 05/12/2024 13:56:55 05/12/20 24 05/12/2024 CBC/C OMPLE TE BLD COUNT W/DIF F nucleated red blood cells 0.0 % -0 Not Available [facility] (Lab) [address] [place], [address], 05/12/2024 13:56:55 05/12/20 24 05/12/2024 CBC/C OMPLE TE BLD COUNT W/DIF F NRBC# 0.00 x10'3 /uL Not Available [facility] (Lab) [address] [place], [address], 05/12/2024 13:56:55 05/12/20 24 05/12/2024 COMPR EHENS JENNA METAB OLIC PANEL sodium 134 mmol/ L 137-14 5 low Not Available [facility] (Lab) [address] [place], [address], 05/12/2024 14:05:48 05/12/20 24 05/12/2024 COMPR EHENS JENNA METAB OLIC PANEL potassium 3.9 mmol/ L 3.5-5. 1 Not Available [facility] (Lab) [address] [place], [address], 05/12/2024 14:05:48 05/12/20 24 05/12/2024 COMPR EHENS JENNA METAB OLIC PANEL chloride 99 mmol/ L 98-107 Not Available [facility] (Lab) [address] [place], [address], 05/12/2024 14:05:48 05/12/20 24 05/12/2024 COMPR EHENS JENNA METAB OLIC PANEL carbon dioxide 29 mmol/ L 22-30 Not Available [facility] (Lab) [address] [place], [address], 05/12/2024 14:05:48 05/12/20 24 05/12/2024 COMPR EHENS JENNA METAB OLIC PANEL anion gap 9.9 mmol/ L 14-22 low Not Available [facility] (Lab) [address] [place], [address], 05/12/2024 14:05:48 05/12/20 24 05/12/2024 COMPR EHENS JENNA METAB OLIC PANEL glucose 93 mg/dL 70-99 Not Available [facility] (Lab) [address] [place], [address], 05/12/2024 14:05:48 05/12/20 24 05/12/2024 COMPR EHENS JENNA METAB OLIC PANEL BUN 17 mg/dL 8-19 Not Available [facility] (Lab) [address] [place], [address], 05/12/2024 14:05:48 05/12/20 24 05/12/2024 COMPR EHENS JENNA METAB OLIC PANEL creatinine 0.99 mg/dL 0.66-1 .25 Not Available [facility] (Lab) [address] [place], [address], 05/12/2024 14:05:48 05/12/20 24 05/12/2024 COMPR EHENS JENNA METAB OLIC PANEL GFR >60 Refer ence Range : [place] [facility] GFR Healt hy Adult : >60 mL/mi n/1.7 3 m2 Chron ic Kidne y Disea se: 15-60 mL/mi n/1.7 3 m2 Kidne y Failu re: <15/m L/min /1.73 m2 www.n iddk. nih.g ov The MDRD study equat ion has not been valid ated in child adrián <18 years of age; pregn ant women ; the elder ly >85 years of age; or in some racia l or ethni c subgr oups, such as Hispa nics. Outsi de the valid ated humberto eters , estim ated GFR is less accur ate, requi ring clini sravani judgm ent on a case- by-ca se basis . Clini sravani inter preta tion for other races and ages must be made by the clini juan manuel. The MDRD study equat ion has not been valid ated for the evalu ation of serum creat inine relat ed to nutri chloe l statu s or medic ation usage . For perso ns <18 years of age, a pedia tric GFR calcu lator is avail able on the [facility] websi te: https :[email or web address] garcia.jennifer holt.o rg/pr ofess ional s/kdo qi/gf r_cal culat or Not Available [facility] (Lab) [address] [place], [address], 05/12/2024 14:05:48 05/12/20 24 05/12/2024 COMPR EHENS JENNA METAB OLIC PANEL alkaline phosphatase 102 U/L 38-126 Not Available [facility] (Lab) [address] [place], [address], 05/12/2024 14:05:48 05/12/20 24 05/12/2024 COMPR EHENS JENNA METAB OLIC PANEL alanine aminotransfe rase 13 U/L 0-50 Not Available [facility] (Lab) [address] [place], [address], 05/12/2024 14:05:48 05/12/20 24 05/12/2024 COMPR EHENS JENNA METAB OLIC PANEL aspartate aminotransfe rase 34 U/L 15-46 Not Available [facility] (Lab) [address] [place], [address], 05/12/2024 14:05:48 05/12/20 24 05/12/2024 COMPR EHENS JENNA METAB OLIC PANEL bilirubin, total 1.00 mg/dL 0.20-1 .30 Not Available [facility] (Lab) [address] [place], [address], 05/12/2024 14:05:48 05/12/20 24 05/12/2024 COMPR EHENS JENNA METAB OLIC PANEL calcium 8.7 mg/dL 8.4-10 .2 Not Available [facility] (Lab) [address] [place], [address], 05/12/2024 14:05:48 05/12/20 24 05/12/2024 COMPR EHENS JENNA METAB OLIC PANEL total protein 7.3 g/dL 6.3-8. 2 Not Available [facility] (Lab) [address] [place], [address], 05/12/2024 14:05:48 05/12/20 24 05/12/2024 COMPR EHENS JENNA METAB OLIC PANEL albumin 4.5 g/dL 3.0-4. 4 high Not Available [facility] (Lab) [address] [place], [address], 05/12/2024 14:05:48 05/12/20 24 05/12/2024 COMPR EHENS JENNA METAB OLIC PANEL globulin 2.8 g/dL 2.6-4. 2 Not Available [facility] (Lab) [address] [place], [address], 05/12/2024 14:05:48 05/12/20 24 05/12/2024 COMPR EHENS JENNA METAB OLIC PANEL A/G ratio 1.6 ratio 1.0-2. 0 Not Available [facility] (Lab) [address] [place], [address], 05/12/2024 14:05:48 05/12/20 24 05/12/2024 LIPID PANEL cholesterol 176 mg/dL 140-19 9 NIH ANASTASIA NSUS RECOM MENDA TION FOR TRUDY STERO L: ADULT CHILD LOW RISK: <200 <170 BORDE RLINE : <200- 239 ----- HIGH RISK: >240 >200 Not Available [facility] (Lab) [address] [place], [address], 05/12/2024 14:05:56 05/12/20 24 05/12/2024 LIPID PANEL triglyceride s 116 mg/dL 0-150 NIH ANASTASIA NSUS REPOR T RECOM MENDA TION FOR TRIGL YCERI KATRINA: ADULT CHILD LOW RISK: <150 ----- BODER LINE: 150-1 99 ----- HIGH RISK: >200 ----- Not Available [facility] (Lab) [address] [place], [address], 05/12/2024 14:05:56 05/12/20 24 05/12/2024 LIPID PANEL HDL cholesterol 42 mg/dL 40- Not Available [facility] (Lab) [address] [place], [address], 05/12/2024 14:05:56 05/12/20 24 05/12/2024 LIPID PANEL LDL cholesterol, calculated 111 mg/dL 0-130 NIH ANASTASIA NSUS REPOR T RECOM MENDA TIONS FOR LDL: ADULT CHILD LOW RISK <130 <110 (OPTI MAL LDL) <100 ----- BORDE RLINE : 130-1 59 ----- HIGH RISK: >160 >130 A TRIGL YCERI DE RESUL T >400 INVAL IDATE S THE CALCU LATIO N FOR LDL FRACT IONAT ION - THE LDL RESUL T WILL NOT BE REPOR SANDIP. Not Available [facility] (Lab) [address] [place], [address], 05/12/2024 14:05:56 05/12/20 24 05/12/2024 MAGNE SIUM magnesium 2.3 mg/dL 1.6-2. 3 Not Available [facility] (Lab) [address] [place], [address], 05/12/2024 14:06:01 05/12/20 24 05/12/2024 T4 FREE free T4 0.93 NG/dL 0.78-2 .19 Not Available [facility] (Lab) [address] [place], [address], 05/12/2024 14:31:15 05/12/20 24 05/12/2024 TSH thyroid-stim ulating hormone 1.180 uIU/m L 0.465- 4.680 Not Available [facility] (Lab) [address] [place], [address], 05/12/2024 14:39:12 05/12/20 24 05/12/2024 PSA, TOTAL PSA, total 0.76 NG/mL 0.00-4 .00 Not Available [facility] (Lab) [address] [place], [address], 05/12/2024 14:39:28 05/12/20 24 05/12/2024 VITAM IN B12 (JIMMY ELIEL ) vb12 259 pg/mL 239-93 1 Not Available [facility] (Lab) [address] [place], [address], 05/12/2024 14:52:53 08/19/20 24 08/23/2024 IRON, TIBC AND LUIS TIN PANEL iron, total 70 mcg/d L 50-180 normal Not Available [facility] [address] [place], [address], 08/23/2024 02:24:05 08/19/20 24 08/23/2024 IRON, TIBC AND LUIS TIN PANEL iron binding capacity 307 mcg/d L_(ca lc) 250-42 5 normal Not Available [address], [address], 08/23/2024 02:24:05 08/19/2008/23/2024 IRON, TIBC AND LUIS TIN PANEL % saturation 23 %_(ca lc) 20-48 normal Not Available [address], [address], 08/23/2024 02:24:05 08/19/2008/23/2024 IRON, TIBC AND LUIS TIN PANEL ferritin 29 NG/mL 24-380 normal Not Available [address], [address], 08/23/2024 02:24:05 08/19/2008/23/2024 TSH+F REE T4 TSH 3.02 mIU/L 0.40-4 .50 normal Not Available [address], [address], 08/23/2024 02:24:07 08/19/2008/23/2024 TSH+F REE T4 T4, free 1.1 NG/dL 0.8-1. 8 normal Not Available [address], [address], 08/23/2024 02:24:07 08/19/2008/23/2024 COMPR EHENS JENNA METAB OLIC PANEL , PLASM A glucose 98 mg/dL 65-99 normal Fasti ng refer ence inter taco Not Available [address], [address], 08/23/2024 02:24:08 08/19/20 24 08/23/2024 COMPR EHENS JENNA METAB OLIC PANEL , PLASM A urea nitrogen (BUN) 16 mg/dL 7-25 normal Not Available [address], [address], 08/23/2024 02:24:08 08/19/2008/23/2024 COMPR EHENS JENNA METAB OLIC PANEL , PLASM A creatinine 1.06 mg/dL 0.70-1 .35 normal Not Available [address], [address], 08/23/2024 02:24:08 08/19/2008/23/2024 COMPR EHENS JENNA METAB OLIC PANEL , PLASM A eGFR 76 mL/mi n/1.7 3m2 > or = 60 normal Not Available [address], [address], 08/23/2024 02:24:08 08/19/2008/23/2024 COMPR EHENS JENNA METAB OLIC PANEL , PLASM A BUN/creatini ne ratio SEE NOTE: (calc ) 6-22 Not Repor sandip: BUN and Creat inine are withi n refer ence range . Not Available [address], [address], 08/23/2024 02:24:08 08/19/2008/23/2024 COMPR EHENS JENNA METAB OLIC PANEL , PLASM A sodium 142 mmol/ L 135-14 6 normal Not Available [address], [address], 08/23/2024 02:24:08 08/19/2008/23/2024 COMPR EHENS JENNA METAB OLIC PANEL , PLASM A potassium 3.7 mmol/ L 3.4-4. 8 normal Not Available [address], [address], 08/23/2024 02:24:08 08/19/2008/23/2024 COMPR EHENS JENNA METAB OLIC PANEL , PLASM A chloride 103 mmol/ L 98-110 normal Not Available [address], [address], 08/23/2024 02:24:08 08/19/2008/23/2024 COMPR EHENS JENNA METAB OLIC PANEL , PLASM A carbon dioxide 29 mmol/ L 20-32 normal Not Available [address], [address], 08/23/2024 02:24:08 08/19/2008/23/2024 COMPR EHENS JENNA METAB OLIC PANEL , PLASM A calcium 8.9 mg/dL 8.6-10 .3 normal Not Available [address], [address], 08/23/2024 02:24:08 08/19/2008/23/2024 COMPR EHENS JENNA METAB OLIC PANEL , PLASM A protein, total 7.0 g/dL 6.4-8. 4 normal Not Available [address], [address], 08/23/2024 02:24:08 08/19/20 24 08/23/2024 COMPR EHENS JENNA METAB OLIC PANEL , PLASM A albumin 4.3 g/dL 3.6-5. 1 normal Not Available [address], [address], 08/23/2024 02:24:08 08/19/2008/23/2024 COMPR EHENS JENNA METAB OLIC PANEL , PLASM A globulin 2.7 g/dL_ (calc ) 2.2-4. 0 normal Not Available [address], [address], 08/23/2024 02:24:08 08/19/2008/23/2024 COMPR EHENS JENNA METAB OLIC PANEL , PLASM A albumin/glob ulin ratio 1.6 (calc ) 0.9-2. 3 normal Not Available [address], [address], 08/23/2024 02:24:08 08/19/2008/23/2024 COMPR EHENS JENNA METAB OLIC PANEL , PLASM A bilirubin, total 0.5 mg/dL 0.2-1. 2 normal Not Available [address], [address], 08/23/2024 02:24:08 08/19/2008/23/2024 COMPR EHENS JENNA METAB OLIC PANEL , PLASM A alkaline phosphatase 77 U/L 35-144 normal Not Available [address], [address], 08/23/2024 02:24:08 08/19/2008/23/2024 COMPR EHENS JENNA METAB OLIC PANEL , PLASM A AST 22 U/L 10-35 normal Not Available [address], [address], 08/23/2024 02:24:08 08/19/2008/23/2024 COMPR EHENS JENNA METAB OLIC PANEL , PLASM A ALT 10 U/L 9-46 normal Not Available [address], [address], 08/23/2024 02:24:08 08/19/2008/23/2024 CBC (INCL UDES DIFF/ PLT) white blood cell count 4.8 thous and/u L 3.8-10 .8 normal Not Available [address], [address], 08/23/2024 02:24:09 08/19/2008/23/2024 CBC (INCL UDES DIFF/ PLT) red blood cell count 4.73 wayne on/uL 4.20-5 .80 normal Not Available [address] [place], [address], 08/23/2024 02:24:09 08/19/2008/23/2024 CBC (INCL UDES DIFF/ PLT) hemoglobin 14.4 g/dL 13.2-1 7.1 normal Not Available [address], [address], 08/23/2024 02:24:09 08/19/2008/23/2024 CBC (INCL UDES DIFF/ PLT) hematocrit 44.1 % 38.5-5 0.0 normal Not Available [address], [address], 08/23/2024 02:24:09 08/19/2008/23/2024 CBC (INCL UDES DIFF/ PLT) MCV 93.2 fL 80.0-1 00.0 normal Not Available [address], [address], 08/23/2024 02:24:09 08/19/2008/23/2024 CBC (INCL UDES DIFF/ PLT) MCH 30.4 pg 27.0-3 3.0 normal Not Available [address], [address], 08/23/2024 02:24:09 08/19/2008/23/2024 CBC (INCL UDES DIFF/ PLT) MCHC 32.7 g/dL 32.0-3 6.0 normal For adult s, a sligh t decre ase in the calcu lated MCHC value (in the range of 30 to 32 g/dL) is most likel y not clini edwin krugeri jody t; krystyna er, it shoul d be inter prete d with cauti on in [facility] ([facility]3] n with other red cell humberto eters and the patie nt's clini sravani condi tion. Not Available [address], [address], 08/23/2024 02:24:09 08/19/20 24 08/23/2024 CBC (INCL UDES DIFF/ PLT) RDW 13.6 % 11.0-1 5.0 normal Not Available [address], [address], 08/23/2024 02:24:09 08/19/2008/23/2024 CBC (INCL UDES DIFF/ PLT) platelet count 292 thous and/u L 140-40 0 normal Not Available [address], [address], 08/23/2024 02:24:09 08/19/2008/23/2024 CBC (INCL UDES DIFF/ PLT) MPV 10.2 fL 7.5-12 .5 normal Not Available [address], [address], 08/23/2024 02:24:09 08/19/2008/23/2024 CBC (INCL UDES DIFF/ PLT) absolute neutrophils 2429 cells /uL 1500-7 800 normal Not Available [address], [address], 08/23/2024 02:24:09 08/19/2008/23/2024 CBC (INCL UDES DIFF/ PLT) absolute lymphocytes 1392 cells /uL 850-39 00 normal Not Available [address], [address], 08/23/2024 02:24:09 08/19/2008/23/2024 CBC (INCL UDES DIFF/ PLT) absolute monocytes 648 cells /uL 200-95 0 normal Not Available [address], [address], 08/23/2024 02:24:09 08/19/2008/23/2024 CBC (INCL UDES DIFF/ PLT) absolute eosinophils 250 cells /uL 15-500 normal Not Available [address], [address], 08/23/2024 02:24:09 08/19/2008/23/2024 CBC (INCL UDES DIFF/ PLT) absolute basophils 82 cells /uL 0-200 normal Not Available [address], [address], 08/23/2024 02:24:09 08/19/2008/23/2024 CBC (INCL UDES DIFF/ PLT) neutrophils 50.6 % normal Not Available [address], [address], 08/23/2024 02:24:09 08/19/2008/23/2024 CBC (INCL UDES DIFF/ PLT) lymphocytes 29.0 % normal Not Available [address], [address], 08/23/2024 02:24:09 08/19/2008/23/2024 CBC (INCL UDES DIFF/ PLT) monocytes 13.5 % normal Not Available [address], [address], 08/23/2024 02:24:09 08/19/20 24 08/23/2024 CBC (INCL UDES DIFF/ PLT) eosinophils 5.2 % normal Not Available [address], [address], 08/23/2024 02:24:09 08/19/2008/23/2024 CBC (INCL UDES DIFF/ PLT) basophils 1.7 % normal Not Available [address], [address], 08/23/2024 02:24:09 08/19/20 24 08/23/2024 FOLAT E, SERUM folate, serum 13.2 NG/mL normal Refer ence Range Low: <3.4 Borde rline : 3.4-5 .4 Karly l: >5.4 Not Available [facility] [address] [place], [address], 08/23/2024 02:24:10 08/19/20 24 08/23/2024 VITAM IN B12 vitamin B12 1911 pg/mL 200-11 00 high Not Available [facility] [address] [place], [address], 08/23/2024 02:24:11 08/19/20 24 08/23/2024 TESTO STERO NE, FREE testosterone , free 42.8 pg/mL 46.0-2 24.0 low MDF med fusio n [address] [facility] [address] [phone] Norbert Ramsey MD, PhD Not Available [facility] [address] [place], [address], 08/23/2024 02:24:12 08/19/20 24 08/23/2024 TESTO STERO NE, TOTAL , MS testosterone , total, MS 358 NG/dL 250-11 00 Men with clini edwin signi fican t hypog onada l sympt oms and testo stero ne value s repea tedly in the range of the 200-3 00 ng/dL or less, may benef it from testo stero ne treat ment after adequ ate risk and benef its couns eling . For addit ional infor yenny smith e refer to https ://ed ucati on.qu estdi [employer]. com/f aq/To Daiana carrizales MSM S (This link is being provi ded for infor juan pablo nal/e ducat ional purpo ses only. ) (Note ) This test was devel oped and its adair tical perfo rmanc e shari cteri stics have been deter mined by [employer]. It has not been clear ed or appro cecily by the FDA. This assay has been valid ated pursu ant to the CLIA regul ation s and is used for clini sravani purpo ses. MDF med fusio n [address] [place] [address] [phone] Norbert Ramsey MD, PhD Not Available [address] [address] [place], [address], 08/23/2024 02:24:13 05/27/2005/28/2025 LIPID PANEL , STAND LORY cholesterol, total 212 mg/dL <200 high Not Available [facility] [address] [address] [place], [address], 05/28/2025 04:50:08 05/27/2005/28/2025 LIPID PANEL , STAND LORY HDL cholesterol 37 mg/dL > or = 40 low Not Available [facility] [address] [address] [place], [address], 05/28/2025 04:50:08 05/27/20 25 05/28/2025 LIPID PANEL , STAND LORY triglyceride s 222 mg/dL <150 high If a non-f astin g speci men was colle cted, consi brenda repea t trigl yceri de testi ng on a fasti ng speci men if clini edwin indic ated. Casey rodriguez et al. J. of Clin. Lipid ol. 2015; 9:129 -169. Not Available [address] [address] [place], [address], 05/28/2025 04:50:08 05/27/2005/28/2025 LIPID PANEL , STAND LORY LDL-choleste rol 139 mg/dL _(sravani c) high Refer ence range : <100 Cristal able range <100 mg/dL for prima ry preve ntion ; <70 mg/dL for patie nts with CHD or diabe tic patie nts with > or = 2 CHD risk facto rs. LDL-C is now calcu lated using the Brandi n-Hop kins calcu latio n, which is a valid ated novel metho d provi ding jannet r accur acy than the Fried solange equat ion in the estim ation of LDL-C . Brandi n SS et al. SUPRIYA. 2013; 310(1 ): 2061- 2068 (http ://ed ucati on.Qu Justine garcias globa.lys. com/f aq/FA Q164) Not Available [facility] [address] [place], [address], 05/28/2025 04:50:08 05/27/2005/28/2025 LIPID PANEL , STAND LORY chol/HDLC ratio 5.7 (calc ) <5.0 high Not Available [facility] [address] [place], [address], 05/28/2025 04:50:08 05/27/2005/28/2025 LIPID PANEL , STAND LORY non HDL cholesterol 175 mg/dL _(sravani c) <130 high For patie nts with diabe sam plus 1 major ASCVD risk facto r, treat ing to a non-H DL-C goal of <100 mg/dL (LDL- C of <70 mg/dL ) is consi dered a thera peuti c optio n. Not Available [facility] [address] [address] [place], [address], 05/28/2025 04:50:08 05/27/2005/28/2025 URIC ACID uric acid 6.1 mg/dL 4.0-8. 0 normal Thera peuti c targe t for gout patie nts: <6.0 mg/dL Not Available [facility] [address] [place], [address], 05/28/2025 04:50:09 05/27/2005/28/2025 COMPR EHENS JENNA METAB OLIC PANEL glucose 104 mg/dL 65-99 high Fasti ng refer ence inter taco For someo ne witho ut known diabe sam, a gluco se value betwe en 100 and 125 mg/dL is consi stent with predi abete s and shoul d be confi rmed with a follo w-up test. Not Available [address], [address], 05/28/2025 04:50:10 05/27/20 25 05/28/2025 COMPR EHENS JENNA METAB OLIC PANEL urea nitrogen (BUN) 16 mg/dL 7-25 normal Not Available [address], [address], 05/28/2025 04:50:10 05/27/20 25 05/28/2025 COMPR EHENS JENNA METAB OLIC PANEL creatinine 1.08 mg/dL 0.70-1 .35 normal Not Available [address], [address], 05/28/2025 04:50:10 05/27/20 25 05/28/2025 COMPR EHENS JENNA METAB OLIC PANEL eGFR 74 mL/mi n/1.7 3m2 > or = 60 normal Not Available [address], [address], 05/28/2025 04:50:10 05/27/2005/28/2025 COMPR EHENS JENNA METAB OLIC PANEL BUN/creatini ne ratio SEE NOTE: (calc ) 6-22 Not Repor sandip: BUN and Creat inine are withi n refer ence range . Not Available [address], [address], 05/28/2025 04:50:10 05/27/20 25 05/28/2025 COMPR EHENS JENNA METAB OLIC PANEL sodium 135 mmol/ L 135-14 6 normal Not Available [address], [address], 05/28/2025 04:50:10 05/27/20 25 05/28/2025 COMPR EHENS JENNA METAB OLIC PANEL potassium 3.7 mmol/ L 3.5-5. 3 normal Not Available [address] [place], [address], 05/28/2025 04:50:10 05/27/20 25 05/28/2025 COMPR EHENS JENNA METAB OLIC PANEL chloride 96 mmol/ L 98-110 low Not Available [address], [address], 05/28/2025 04:50:10 05/27/20 25 05/28/2025 COMPR EHENS JENNA METAB OLIC PANEL carbon dioxide 30 mmol/ L 20-32 normal Not Available [facility] [address], [address], 05/28/2025 04:50:10 05/27/20 25 05/28/2025 COMPR EHENS JENNA METAB OLIC PANEL calcium 9.2 mg/dL 8.6-10 .3 normal Not Available [facility] [address], [address], 05/28/2025 04:50:10 05/27/20 25 05/28/2025 COMPR EHENS JENNA METAB OLIC PANEL protein, total 6.7 g/dL 6.1-8. 1 normal Not Available [facility] [address], [address], 05/28/2025 04:50:10 05/27/2005/28/2025 COMPR EHENS JENNA METAB OLIC PANEL albumin 4.4 g/dL 3.6-5. 1 normal Not Available [facility] [address], [address], 05/28/2025 04:50:10 05/27/20 25 05/28/2025 COMPR EHENS JENNA METAB OLIC PANEL globulin 2.3 g/dL_ (calc ) 1.9-3. 7 normal Not Available [facility] [address], [address], 05/28/2025 04:50:10 05/27/20 25 05/28/2025 COMPR EHENS JENNA METAB OLIC PANEL albumin/glob ulin ratio 1.9 (calc ) 1.0-2. 5 normal Not Available [address], [address], 05/28/2025 04:50:10 05/27/20 25 05/28/2025 COMPR EHENS JENNA METAB OLIC PANEL bilirubin, total 0.6 mg/dL 0.2-1. 2 normal Not Available [address], [address], 05/28/2025 04:50:10 05/27/20 25 05/28/2025 COMPR EHENS JENNA METAB OLIC PANEL alkaline phosphatase 76 U/L 35-144 normal Not Available [address], [address], 05/28/2025 04:50:10 05/27/20 25 05/28/2025 COMPR EHENS JENNA METAB OLIC PANEL AST 20 U/L 10-35 normal Not Available [address], [address], 05/28/2025 04:50:10 05/27/20 25 05/28/2025 COMPR EHENS JENNA METAB OLIC PANEL ALT 9 U/L 9-46 normal Not Available [address], [address], 05/28/2025 04:50:10 05/27/20 25 05/28/2025 CBC (INCL UDES DIFF/ PLT) white blood cell count 6.5 thous and/u L 3.8-10 .8 normal Not Available [address], [address], 05/28/2025 04:50:11 05/27/20 25 05/28/2025 CBC (INCL UDES DIFF/ PLT) red blood cell count 4.66 wayne on/uL 4.20-5 .80 normal Not Available [address], [address], 05/28/2025 04:50:11 05/27/2005/28/2025 CBC (INCL UDES DIFF/ PLT) hemoglobin 14.1 g/dL 13.2-1 7.1 normal Not Available [address], [address], 05/28/2025 04:50:11 05/27/2005/28/2025 CBC (INCL UDES DIFF/ PLT) hematocrit 43.4 % 38.5-5 0.0 normal Not Available [address], [address], 05/28/2025 04:50:11 05/27/2005/28/2025 CBC (INCL UDES DIFF/ PLT) MCV 93.1 fL 80.0-1 00.0 normal Not Available [address], [address], 05/28/2025 04:50:11 05/27/2005/28/2025 CBC (INCL UDES DIFF/ PLT) MCH 30.3 pg 27.0-3 3.0 normal Not Available [address], [address], 05/28/2025 04:50:11 05/27/2005/28/2025 CBC (INCL UDES DIFF/ PLT) MCHC 32.5 g/dL 32.0-3 6.0 normal For adult s, a sligh t decre ase in the calcu lated MCHC value (in the range of 30 to 32 g/dL) is most likel y not clini edwin krugeri jody t; krystyna er, it shoul d be inter prete d with cauti on in corre latio n with other red cell humberto eters and the patie nt's clini sravani condi tion. Not Available [address], [address], 05/28/2025 04:50:11 05/27/20 25 05/28/2025 CBC (INCL UDES DIFF/ PLT) RDW 13.5 % 11.0-1 5.0 normal Not Available [address], [address], 05/28/2025 04:50:11 05/27/2005/28/2025 CBC (INCL UDES DIFF/ PLT) platelet count 295 thous and/u L 140-40 0 normal Not Available [address], [address], 05/28/2025 04:50:11 05/27/2005/28/2025 CBC (INCL UDES DIFF/ PLT) MPV 10.1 fL 7.5-12 .5 normal Not Available [address], [address], 05/28/2025 04:50:11 05/27/20 25 05/28/2025 CBC (INCL UDES DIFF/ PLT) absolute neutrophils 3777 cells /uL 1500-7 800 normal Not Available [address], [address], 05/28/2025 04:50:11 05/27/2005/28/2025 CBC (INCL UDES DIFF/ PLT) absolute lymphocytes 1541 cells /uL 850-39 00 normal Not Available [address], [address], 05/28/2025 04:50:11 05/27/2005/28/2025 CBC (INCL UDES DIFF/ PLT) absolute monocytes 884 cells /uL 200-95 0 normal Not Available [address], [address], 05/28/2025 04:50:11 05/27/20 25 05/28/2025 CBC (INCL UDES DIFF/ PLT) absolute eosinophils 221 cells /uL 15-500 normal Not Available [address], [address], 05/28/2025 04:50:11 05/27/20 25 05/28/2025 CBC (INCL UDES DIFF/ PLT) absolute basophils 78 cells /uL 0-200 normal Not Available [address], [address], 05/28/2025 04:50:11 05/27/20 25 05/28/2025 CBC (INCL UDES DIFF/ PLT) neutrophils 58.1 % normal Not Available [address], [address], 05/28/2025 04:50:11 05/27/20 25 05/28/2025 CBC (INCL UDES DIFF/ PLT) lymphocytes 23.7 % normal Not Available [address], [address], 05/28/2025 04:50:11 05/27/20 25 05/28/2025 CBC (INCL UDES DIFF/ PLT) monocytes 13.6 % normal Not Available [address], [address], 05/28/2025 04:50:11 05/27/20 25 05/28/2025 CBC (INCL UDES DIFF/ PLT) eosinophils 3.4 % normal Not Available [address], [address], 05/28/2025 04:50:11 05/27/20 25 05/28/2025 CBC (INCL UDES DIFF/ PLT) basophils 1.2 % normal Not Available [address], [address], 05/28/2025 04:50:11 05/27/20 25 05/28/2025 PSA, TOTAL PSA, total 0.63 NG/mL < or = 4.00 normal The total PSA value from this assay syste m is stand ardiz ed again st the WHO stand lory. The test resul t will be appro ximat theodore 20% lower when joesph red to the equim olar- stand ardiz ed total PSA ([place] man Coult er). Joesph rison of seria l PSA resul ts shoul d be inter prete d with this fact in mind. This test was perfo rmed using the [employer] ns chemi lumin escen t metho d. Value s obtai ulysses from diffe rent assay metho ds canno t be used inter castro eably . PSA level s, regar dless of value , shoul d not be inter prete d as absol santiago evide nce of the prese nce or absen ce of disea se. Not Available [facility] [address] [address] [place], [address], 05/28/2025 04:50:13 05/27/20 25 05/28/2025 T4, FREE T4, free 1.0 NG/dL 0.8-1. 8 normal Not Available [facility] [address] [address] [place], [address], 05/28/2025 04:50:13 05/27/20 25 05/28/2025 TSH TSH 1.81 mIU/L 0.40-4 .50 normal Not Available [facility] [address] [place], [address], 05/28/2025 04:50:14 05/23/20 25 05/23/2025 XR, foot, 3 or more view No observ ation record ed. [email or web address] [facility] [address] [facility] [address], [place], [address], 05/24/2025 06:51:46 06/16/20 25 06/10/2025 MRI, foot, w/o contr ast No observ ation record ed. [facility] [address], [place], [address], 06/16/2025 09:10:57 06/16/20 25 06/10/2025 MRI, foot, w/o contr ast No observ ation record ed. [address] [facility] [address], [place], [address], 06/16/2025 13:45:00 10/03/20 25 10/03/2025 XR, hand No observ ation record ed. [address], [place], [address], 10/03/2025 17:44:38 Result Notes None recorded. Problems Name Problem SNOMED Code Status Onset Date Resolution Date Notes Provider Name and Address Organization Details Recorded Time Abnormal urine 004578772 Active Not Available [facility] 3 15:16:52 Testicular hypofuncti on 929659279 Active Not Available [facility] 3 15:16:52 Prostatism 21754974 Active Not Available [facility] 3 15:16:52 Benign essential hypertensi on 0127290 Active Not Available [facility] 3 15:16:52 Carpal tunnel syndrome 62514020 Active Not Available [facility] 3 15:16:53 Food poisoning 26578285 Active Not Available [facility] 3 15:16:53 Ganglion of joint 24756263 Active Not Available [facility] 3 15:16:53 Diverticul itis 957973281 Active 2016 Not Available [facility] 3 15:16:53 Benign prostatic hyperplasi a 335519968 Active 2017 Not Available [facility] 3 15:16:52 Gastroesop hageal reflux disease 104548285 Active 2019 Not Available [facility] 3 15:16:52 Pancreas divisum 50874862 Active 2020 Not Available [facility] 3 15:16:53 Pancreatit is 94020246 Active 2020 Not Available [facility] 3 15:16:53 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 Not Available [facility] 3 15:16:54 Pain of right shoulder joint 2817226313305 9100 Active 2021 Not Available [facility] 3 15:16:52 Acute serous otitis media of left ear 4961647487933 101 Active 2021 Not Available [facility] 3 15:16:52 Otitis media 37751394 Active 2021 Not Available [facility] 3 15:16:53 Hearing loss 00237568 Active 2021 Not Available [facility] 3 15:16:52 Low back strain 719184688 Active 2022 Not Available [facility] 3 15:16:53 Disorder of prostate 45652586 Active 2022 Wili Negrete MD [address], [address], [place], [address] , [facility] 3 12:13:08 Anxiety 48157932 Active 2022 Mikala handley, [place] - [facility] 3 12:29:16 Enterobias is 162212154 Active 2023 Wili Negrete MD [address], [address], [place], [address] , [facility] 4 12:39:21 Anemia 170151060 Active 2023 Mikala [place]ley, [place] - [facility] 4 16:27:16 Cobalamin deficiency 113315688 Active 2023 CHRISSY Jones null, [place] - [facility] 4 12:24:11 Acute sialoadeni tis 587617132 Active 2023 Wili Negrete MD [address], [place], [address] , [facility] - [facility] 4 10:52:08 Fatigue 82591639 Active 2023 Yaquelin Christy CMA null, [facility] 4 11:33:36 Laceration of finger of left hand 4444987649757 9106 Active 2023 Wili Negrete MD [address], [address] , [facility] 4 10:33:59 Pain in right foot 9168818984597 07 Active 2024 Roselia handley, [place] - [facility] 5 17:23:48 Pure hyperchole sterolemia 366168928 Active 2024 ANALIA Vasquez, [facility] 5 15:31:38 Diverticul osis of large intestine 228671216 Active 2024 Roselia handley, [facility] 5 12:48:57 Acute low back pain 680156030 Active 2024 Wili Negrete MD [address], [address] , [facility] 5 11:12:38 Pain of multiple joints 57051953 Active 2024 Wili Negrete MD [address], [address] , [facility] 5 14:44:16 Nodule on finger 983414234 Active 2024 ANALIA Vasquez, [place] [facility] 5 11:28:45 Problem Notes None recorded. Procedures Surgical History Date Name Laterality Status Provider Name and Address Organization Details Recorded Time Hernia Surgery completed Not Available [facility] 01/08/2023 15:14:10 Imaging Results None recorded. Procedure Notes None recorded. Medical Equipment None Reported. Medications Name Sig Start Date Stop Date Status Note LastModified by Organization Details LastModified Time losartan 50 mg tablet TAKE 1 TABLET BY MOUTH EVERY DAY 06/23 completed Not Available Not Available Not Available amoxicillin 500 mg capsule TAKE 1 CAPSULE BY MOUTH EVERY 8 HOURS active Not Available Not Available No t Available Augmentin 875 mg-125 mg tablet Take 1 tablet every 12 hours by oral route. 09/15 completed Not Available Not Available Not Available Tylenol-Cod eine #4 300 mg-60 mg tablet Take 1 tablet every 6 hours by oral route. 09/15 completed Not Available Not Available Not Available atorvastati n 20 mg tablet TAKE 1 TABLET BY MOUTH EVERY DAY active Not Available Not Available No t Available bupivacaine HCl 0.5 % (5 mg/mL) injection solution IN OFFICE 09/24 completed Not Available Not Available Not Available topiramate 25 mg tablet TAKE 1 TABLET BY MOUTH EVERY DAY 03/05 completed Not Available Not Available Not Available metronidazo le 500 mg tablet Take 1 tablet every 8 hours by oral route. 11/28 completed Not Available Not Available Not Available amlodipine 5 mg tablet TAKE 1 TABLET BY MOUTH EVERY DAY active Not Available Not Available No t Available Zofran 4 mg tablet Take 1 tablet every 6-8 hours by oral route as needed. active Not Available Not Available No t Available tamsulosin 0.4 mg capsule TAKE 1 CAPSULE BY MOUTH EVERYDAY AT BEDTIME active Not Available Not Available No t Available Kenalog 10 mg/mL suspension for injection In office injection administe red by the provider 09/[address] [facility]: 0003- [phone]- [phone] Not Available Not Available Not Available baclofen 10 mg tablet TAKE 1 TABLET BY MOUTH FOUR TIMES A DAY active Not Available Not Available No t Available cephalexin 500 mg capsule TAKE 1 CAPSULE BY MOUTH EVERY 6 HOURS 09/14 completed Not Available Not Available Not Available cyanocobala min (vit B-12) 1,000 mcg/mL injection solution 1 ml 05/26 completed Not Available Not Available Not Available ferrous sulfate 325 mg (65 mg iron) tablet TAKE 1 TABLET BY MOUTH EVERY DAY 05/26 completed Not Available Not Available Not Available Cipro 500 mg tablet Take 1 tablet twice a day by oral route for 10 days. 11/28 completed Not Available Not Available Not Available Marta-D 12 Hour 60 mg-120 mg tablet,exte nded release Take 1 tablet twice a day by oral route. 2021 active Not Available Not Available Not Avai lable hydrochloro thiazide 12.5 mg capsule Take 1 capsule every day by oral route. active Not Available Not Available No t Available omeprazole 20 mg capsule,del ayed release TAKE 1 CAPSULE BY MOUTH EVERY DAY active Not Available Not Available No t Available methylpredn isolone 4 mg tablets in a dose pack TAKE 6 TABLETS ON DAY 1 DIRECTED ON PACKAGE AND DECREASE BY 1 TAB EACH DAY FOR A TOTAL OF 6 DAYS active Not Available Not Available No t Available ketoconazol e 2 % topical cream APPLY THIN LAYER TO AFFECTED AREAS ON THE FACE TWICE A DAY UNTIL CLEAR, THEN NEEDED active Not Available Not Available No t Available losartan 100 mg tablet TAKE 1 TABLET BY MOUTH EVERY DAY active Not Available Not Available No t Available Bactrim DS 800 mg-160 mg tablet Take 1 tablet every 12 hours by oral route. active Not Available Not Available No t Available hydrochloro thiazide 12.5 mg tablet TAKE 1 TABLET BY MOUTH EVERY DAY active Not Available Not Available No t Available Suprep Bowel Prep Kit 17.5 gram-3.13 gram-1.6 gram oral solution USE DIRECTED 02/13 completed Not Available Not Available Not Available Emverm 100 mg chewable tablet CHEW 1 TABLET EVERY DAY BY ORAL ROUTE FOR 3 DAYS. 05/26 completed Not Available Not Available Not Available Vitals Date Recorded Body height Body mass index (BMI) Body weight Heart rate Body temperature Oxygen saturation Systolic And Diastolic Provider Name and Address Organization Details Last Updated DateTime 4 170.18 cm 26.2 kg/m2 62438.9 3 g 75 /min 97.4 [degF] 97 % 146/94 mm[Hg] CHRISSY Jones [facility] 4 11:22:37 Date Recorded Body height Body mass index (BMI) Body weight Heart rate Body temperature Oxygen saturation Systolic And Diastolic Provider Name and Address Organization Details Last Updated DateTime 5 170.18 cm 26.3 kg/m2 99777.5 2 g 78 /min 97 [degF] 97 % 160/80 mm[Hg] Mikala Harris [facility] 5 11:10:19 Date Recorded Heart rate Systolic And Diastolic Provider Name and Address Organization Details Last Updated DateTime 06/01/2024 74 /min 130/90 mm[Hg] CHRISSY Jones [facility] 06/01/2024 12:21:25 Date Recorded Body height Body mass index (BMI) Body weight Heart rate Body temperature Oxygen saturation Systolic And Diastolic Provider Name and Address Organization Details Last Updated DateTime 4 170.18 cm 25.5 kg/m2 56184.5 6 g 84 /min 97.3 [degF] 98 % 136/84 mm[Hg] Ute MurrellCHRISSY [employer] [facility] [employer] 4 10:40:20 Date Recorded Body height Body mass index (BMI) Body weight Heart rate Body temperature Oxygen saturation Systolic And Diastolic Provider Name and Address Organization Details Last Updated DateTime 5 170.18 cm 26.6 kg/m2 40239.7 g 66 /min 97.2 [degF] 95 % 118/80 mm[Hg] Mikala Harris [employer] [facility] 5 14:32:56 Date Recorded Body height Body mass index (BMI) Body weight Heart rate Body temperature Oxygen saturation Systolic And Diastolic Provider Name and Address Organization Details Last Updated DateTime 4 170.18 cm 26.6 kg/m2 98342.7 g 82 /min 97 [degF] 97 % 130/88 mm[Hg] Ute Murrell Ho [place] [employer] [facility] 4 10:22:23 Social History Question Answer Notes LastModified by Organizat ion Details LastModified Time Tobacco Smoking Status Former Smoker Not Available [employer] 01/08/2023 15:13:49 Are You Blind Or Do You Have Difficulty Seeing? No [id number] Information not available 01/08/2023 In The 14 Days Before Symptom Onset, Have You Had Close Contact With A Laboratory-confirm ed COVID-19 While That Case Was Ill? No [id number] Information not available 01/08/2023 In The 14 Days Before Symptom Onset, Have You Had Close Contact With A Person Who Is Under Investigation For COVID-19 While That Person Was Ill? No [id number] Information not available 01/08/2023 Are You Deaf Or Do You Have Serious Difficulty Hearing? No [id number] Information not available 01/08/2023 What Was The Date Of Your Most Recent Tobacco Screening? 12/05/2021 [id number] Information not available 01/08/2023 Have You Recently Traveled Abroad? No [id number] Information not available 01/08/2023 Do You Have Difficulty Walking Or Climbing Stairs? No [id number] Information not available 01/08/2023 Sex: Unknown Functional Status Question Answer Note LastModified by Organizat ion Details LastModified Time What is your level of alcohol consumption? None [id number] Information not available 01/08/2023 Do you have transportation difficulties? No [id number] Information not available 01/08/2023 Are you able to walk independently without assistance or assistive devices? YESWOREST [id number] Information not available 01/08/2023 Do you have difficulty doing errands alone? No [id number] Information not available 01/08/2023 Are you able to care for yourself independently? Yes [id number] Information not available 01/08/2023 Do you have difficulty dressing, bathing, grooming, or toileting? No [id number] Information not available 01/08/2023 Mental Status Question Answer Note LastModified by Organizat ion Details LastModified Time Do you have difficulty concentrating, remembering or making decisions? No [id number] Information not available 01/08/2023 Family History Relationship Description Onset Age of this Age Resolved Age Notes LastModified by Organization Details LastModified Time Unspecified Relation Family history of malignant neoplasm grandm other [id number] Not available 01/08/2023 15:14:10 Mother Family history of stroke [id number] Not available 01/08/2023 15:14:10 Notes:Mother 85 Alz heimer's HTN CVA Father 72 from [place] of Prostate 1/2 Brother of testicular CA 1 Brother living and in good health Medical History Condition Response NERVE DISEASE N BLINDNESS N RHEUMATIC FEVER N KIDNEY STONES N BLADDER PROBLEMS N MRSA N OTHER # 1 N POLIO N LUNG DISEASE/DISORDER N RADIATION / CHEMOTHERAPY N COPD N Other # 2 N BLOOD DISEASES N SURGERY N EAR OR HEARING PROBLEMS N MUMPS N DEPRESSION (INCLUDING POST ) N BOWEL PROBLEMS N STROKE/TIA N ULCERS N BENIGN PROSTATIC HYPERPLASIA N MEASLES N MYOCARDIAL INFARCTION N OBESITY N GERD/NAUSEA Y ANEURYSM N URINARY/BLADDER/KIDNEY PROBLEMS N CORONARY ARTERY DISEASE (CAD) N ADDICTION CONCERNS N Impotence N ENDOMETRIOSIS N USE OF BLOOD THINNERS N SKIN PROBLEMS N GASTROINTESTINAL DISORDER N PERIPHERAL VASCULAR DISEASE N MUSCLE,JOINT OR BONE PROBLEMS Y GASTROINTESTINAL BLEEDING N BLOOD CLOTS N ASTHMA N CATARACTS N ERECTILE DYSFUNCTION N VARICOSITIES N GI PROBLEMS N Low Testosterone N INFERTILITY N AIDS/HIV N CHEMOTHERAPY / RADIATION N LIVER DISEASE N MALE HYPOGONADISM N HYPERTENSION Y Deficiency N ANXIETY DISORDER N BLOOD TRANSFUSION N ANEMIA/BLOOD DISORDER N CHRONIC EAR INFECTIONS N BRONCHITIS N TUBERCULOSIS N GLAUCOMA N FOOT PROBLEM N DIVERTICULITIS Y SLEEP APNEA N CHICKENPOX N INFECTIOUS DISEASE N PROSTATE Y HEART ARRHYTHMIA N INSOMNIA N HIGH CHOLESTEROL / HYPERLIPIDEMIA N HYPERTHYROIDISM N EYE PROBLEMS N NEUROLOGICAL PROBLEMS N EDEMA N CHRONIC PAIN SYNDROME N HYPOTHYROIDISM N CONSTIPATION N CAROTID BLOCKAGE N BACK / NECK PROBLEMS N HAVE YOU BEEN HOSPITALIZED OR SEEN IN [facility] IN THE PAST YEAR ? N ATHEROSCLEROSIS N BREAST PROBLEMS N DIALYSIS N ECZEMA N OSTEOPOROSIS N ARTHRITIS N NO SIGNIFICANT PAST MEDICAL HISTORY N APPENDICITIS N DIABETES, TYPE N BAD TEETH N ENT N HEARTBURN / REFLUX N AUTISM SPECTRUM DISORDER (ASD) N HEPATITIS / LIVER DISEASE N GOUT N SLEEP DISORDER N ALZHEIMER'S DISEASE N Brain Problems N HERPES N DEMENTIA N SEIZURES/EPILEPSY N HEADACHES/MIGRAINES N VASCULAR DISEASE N PACEMAKER N Blood Disorder N DIZZINESS N KIDNEY DISEASE N HEART DISEASE/HEART PROBLEMS N MULTIPLE SCLEROSIS N CARDIAC ARRHYTHMIA N CANCER: SPECIFY N Gall Stones N ATRIAL FIBRILLATION N PULMONARY EMBOLISM N AUTOIMMUNE DISEASE N Immunizations Vaccine Type Date Status Note Provider Nam e and Address Organization Details Recorded Time [facility] 1 completed CHRISSY Jones, [employer] [facility] 05/28/2024 12:04:15 Influenza, split virus, trivalent, PF 4 completed CHRISSY Jones [employer] [facility] 05/28/2024 12:05:47 Influenza, split virus, quadrivalent, PF 3 completed CHRISSY Jones, [employer] [facility] 05/28/2024 12:07:07 SARS-COV-2 (COVID-19) vaccine, UNSPECIFIED 1 completed CHRISSY Jones [employer] [facility] [employer] [facility] 05/28/2024 12:15:35 SARS-COV-2 (COVID-19) vaccine, UNSPECIFIED 1 completed CHRISSY Jones [employer] [facility] 05/28/2024 12:16:37 SARS-COV-2 (COVID-19) vaccine, UNSPECIFIED 1 completed CHRISSY Jones, [facility] 05/28/2024 12:17:30 COVID-19, mRNA, LNP-S, PF, 30 mcg/0.3 mL dose, bassam-sucrose 2 completed CHRISSY Jones, [facility] 05/28/2024 12:23:46 COVID-19, mRNA, LNP-S, bivalent, PF, 30 mcg/0.3 mL dose 2 completed CHRISSY Jones, [facility] 05/28/2024 12:23:19 COVID-19, mRNA, LNP-S, PF, 50 mcg/0.5 mL 3 completed CHRISSY Jones, [facility] 05/28/2024 12:24:39 RSV, recombinant, protein subunit RSVpreF, adjuvant reconstituted, 0.5 mL, PF 3 completed CHRISSY Jones, [facility] 05/28/2024 12:25:39 Td (adult), 2 Lf tetanus toxoid, preservative free, adsorbed 1 completed Not Available [facility] 09/08/2025 14:23:37 Tdap 4 completed Not Available [facility] 09/08/2025 14:23:37 Influenza, split virus, trivalent, PF 4 completed Not Available [facility] 09/08/2025 14:23:37 COVID-19, mRNA, LNP-S, PF, 50 mcg/0.5 mL 4 completed Not Available [facility] 09/08/2025 14:23:37 COVID-19, mRNA, LNP-S, PF, bassam-sucrose, 30 mcg/0.3 mL 5 completed Not Available [facility] 09/08/2025 14:23:37 zoster recombinant 4 completed Wili Negrete MD [address] [place] [address], [place] [address], [place], [address], [facility] 05/11/2024 15:11:00 Influenza, split virus, trivalent, preservative 3 completed Not Available [facility] 01/08/2023 15:20:48 Influenza, high-dose, quadrivalent, PF 1 completed Not Available [facility] 01/08/2023 15:20:48 Past Encounters Encounter ID Performer Location Encounter Start Date Encounter Closed Date Diagnosis/Indication Diagnosis SNOMED-CT Code Diagnosis ICD10 Code Diagnosis IMO Codes Diagnosis Note [id number] Wili Negrete MD [facility] [place] [facility] [place] [address] [place] [address] y , [place] [address] 02/13/2021 00:00:00 02/13/2021 11:56:06 [id number] Wili Negrete MD [facility] [place] [facility] [place] [address] [place] [address] y , [place] [address] 08/21/2021 00:00:00 08/21/2021 10:52:10 [id number] Wili Negrete MD [facility] [place] [facility] 24 [address] [facility], [facility] 24 [place] [address] 09/19/2021 00:00:00 09/19/2021 10:36:02 [id number] Wili Negrete MD [facility] [place] [facility] [place] [address] [place] [address] y , [place] [address] 11/20/2021 00:00:00 11/20/2021 16:08:15 [id number] Rodrick Fuentes MD [facility] [place] [address] [place] [address] 12/05/2021 00:00:00 12/05/2021 15:42:58 [id number] Rodrick Fuentes MD [facility] [place] [facility] [place] [address] [place] [address] 02/06/2022 00:00:00 02/06/2022 15:19:33 [id number] Wili Negrete MD [facility] [place] [facility] [place] [address] [place] [address] 03/05/2022 00:00:00 03/05/2022 16:43:16 [id number] Wili Negrete MD [facility] [place] [address] [place] [address] [place] [address] 06/18/2022 00:00:00 06/18/2022 12:32:58 [id number] Wili Negrete MD [facility] [place] [address] [place] [address] [place] [address] 09/24/2022 00:00:00 09/24/2022 16:39:04 [id number] Wili Negrete MD [facility] [place] [address] [place] [address] [place] [address] 05/09/2023 11:30:07 05/09/2023 12:19:38 Adult health examination 258953453 Z00.00 Depression screening 171 530461 Z13.31 Gastroesop hageal reflux disease 766565367 K21.9 Benign ess ential hypertension 8005651 I10 Disorder of prostate 302 23719 N42.9 [id number] Wili Negrete MD [facility] [place] [address] [place] [address] [place] [address] 05/23/2023 15:54:55 05/23/2023 16:33:39 Benign essential hypertension 2114842 I10 [id number] Wili Negrete MD [facility] [place] [address] [place] [address] [place] [address] 05/11/2024 11:17:19 05/11/2024 12:03:58 Benign essential hypertension 3541415 I10 Diverticulitis 331674296 K57.92 Gastroesop hageal reflux disease 963118823 K21.9 Disorder of prostate 302 93802 N42.9 Adult heal th examination 625313032 Z00.00 Depression screening 171 415414 Z13.31 Administra tion of viral vaccine 15551467 Z23 [id number] Wili Negrete MD [facility] Internal Med [facility] [address] [address] 06/23/2024 10:36:08 06/23/2024 11:15:25 Acute sialoadenitis 403033388 K11.21 [id number] Wili Negrete MD [facility] Internal [facility] [place] [address] [facility] [place] [address] 09/14/2024 10:15:03 09/14/2024 10:58:42 Laceration of finger of left hand 1272160955 4694844 S61.211A [id number] Wili Negrete MD [facility] Internal Med [facility] [address] [place] [address] [address] 05/26/2025 11:09:05 05/26/2025 11:32:45 Diverticulitis 833966275 K57.92 Benign ess ential hypertension 0406864 I10 General ex amination of patient 511405256 Z00.00 404126 Pain in right foot 48482 75454 19676 M79.671 113895 Disorder of prostate 302 03594 N42.9 [id number] Wili Negrete MD [facility] Internal Med [facility] [address] [address] 09/08/2025 14:22:43 09/08/2025 14:53:13 Pain of multiple joints 73549856 M25.50 Health Concerns Section Related Observation LastModified by Organization Detai ls LastModified Time None Recorded Concern Status LastModified by Organization Details LastModified Time None Recorded Advance Directives Directive None Recorded Payers Insurance Date Sequence Insurance Name Policy Number Policy Canas Covered Member ID Canas Member ID Guarantor Name 09/07/2025 1 [employer] - OPEN ACCESS [id number] Justin Jensen [id number] SOI Justin Jensen Notes Date Note Type Note Provider Name and Address Organization Details Recorded Time 024 text/ht ml Patient Name: Justin JensenDate Of Service: Friday ( 05.11.2024 ): 1955 Age: 69 Chief Complaint: Addressed in HPI Problems or conditions discussed in the HPI were the only ones reviewed during the encounter.Only social and family history addressed in the HPI were reviewed during this encounter. Attendant(s): NoneConstitutional and Systemic Symptoms:none Medication Reconciliation: from medication list. History of Present Illness In for a well patient check up. Last well patient evaluation was approximately one year. No interval complaints of any new major medical problems. No hx of any chest pain, shortness of breath, nausea, vomiting, diarrhea or constitutional symptoms.PSA orderedColonoscopy or Cologuard: not dueImmunizations Up To Date or refuses to takeNo Significant Change In Family HxFall Risk normalDepression Score: 0Hearing normalVisual normalReviewed Smoking and Drug HistoryReviewed Immunization HistoryInstructed on importance of weight on diabetes, heart and other diseases aggravated by obesity.Instructed on importance of weight on diabetes, heart and other diseases aggravated by obesity. #1. Essential Hypertension: Stage: Stage I Interval Neurological Complaints no headaches, dizziness, weakness, visual changes, ataxia, aphasia and apraxia. No shortness of breath, orthopnea or cardiovascular symptoms. No other symptoms related to end organ damage. Pressure has been under excellent control. Currently normal. No other end organ symptoms or findings. Therapy reviewed regarding management of hypertension and includes salt restriction and Hydrochlorothiazide, Losartan Potassium and Norvasc. #2. Hx of diverticulitis. No interval complaints of pain, fever, chills or other constitutional symptoms. There has been no change in bowel habits or frequency. No change in the caliber of the stool. #3. Hx of esophageal reflux currently stable. Hx of Complications: none The severity, duration and intensity of symptoms have improved. Frequency: most meals Treatment consists medications taken on a regular basis. Current therapy includes Omeprazole. There has been no nausea, eructation, vomiting, hematemesis, dysphagia, velopharyngeal insufficiency and odynophagia. No change in he frequency or intensity of symptoms. Has had no melena. Has had no . Discussed use of H2 antagonists and the possibility of trying to reduce the frequency of the use of any PPI inhibitors and try H2 antagonists to see if symptoms can be controlled with lease intensive therapy since a number of complications are associated with chronic prolonged use of PPI inhibitors. Active Medication ListLosartan Potassium 100 MG TABLET One DailyNorvasc 5 MG TABLET Once DailyOmeprazole 20 MG (CAPSULE, DELAYED REL PELLETS - ORAL) One DailyHydrochlorothiazide 12.5 MG CAPSULE One DailyFlomax 0.4 MG (CAPSULE - ORAL) One Daily Vaccination and Xysxxtbjbbjc1265-73 Xfbulfbjh3048-72 CovGlobal Filmdemic Surgical Kphtvhx8991-98 Rt. Inguinal Zprttv8452-08 Rt. Inguinal Hernia Repair Preventative Qpiaufm7205/09/2023 ALBUMIN 4.4 G/DL N005/09/2023 PSA 0.66 NG/ML N005/25/2020 UPPER YHJRHKIKY25/16/2020 COLONOSCOPY (5 YEARS) 05/25/2025 Social HistoryDoes not smokeDrinks sociallyCommunications Family HistoryMother 85 Alzheimer's HTN CVAFather 72 from [place] of Prostate1/2 Brother of testicular CA1 Brother living and in good health Wiil Negrete MD [address] [facility], [facility] [address], [place], [address] , [place] [facility] 05/11/2024 15:11:27 024 text/ht ml Patient Name: Jsutin Morton Of Service: Friday ( 06.23.2024 ): 1955 Age: 69 There has been approximately a 4 lb weight loss since 05/23/2023. This represents approximately a 2.4% change in weight. Weight change attributable to lifestyle changes. Vital Signs:Blood Pressure: Sitting Rt. Arm 136/81Pulse: Sitting 84 /min and RegularRespiratory Rate: 14Height 67 in or 1.7 mWeight 163 lb or 73.9 kgBMI 25.5Temperature: 97.3 F or 36.3 CPulse Oximetry: 98 % at rest on no oxygen Chief Complaint: Addressed in HPI Problems or conditions discussed in the HPI were the only ones reviewed during the encounter.Only social and family history addressed in the HPI were reviewed during this encounter. Attendant(s): NoneConstitutional and Systemic Symptoms:none Medication Reconciliation: from medication list. History of Present Illness #1. Wake in the middle night with discomfort in the right jaw area. Has had no dental problems recently. Pain is increased over the last several hours. Does have some swelling over the right parotid gland. There is also tenderness over this area. Examination of the oropharynx fails disclose any significant anomalies. There is no redness or any type of discharge noted from Stensen's duct. No other systemic complaints.: Active Medication ListLosartan Potassium 100 MG TABLET One DailyNorvasc 5 MG TABLET Once DailyOmeprazole 20 MG (CAPSULE, DELAYED REL PELLETS - ORAL) One DailyHydrochlorothiazide 12.5 MG CAPSULE One DailyFlomax 0.4 MG (CAPSULE - ORAL) One Daily Wili Negrete MD [address] [facility], [place] [address], [place], [address] , [facility] 06/23/2024 10:59:48 024 text/ht ml Patient Name: Justin Morton Of Service: Friday ( 09.14.2024 ): 1955 Age: 69 There has been approximately a 7 lb weight gain since 06/23/2024. This represents approximately a 4.3% change in weight. Weight change attributable to lifestyle changes. Vital Signs:Blood Pressure: Sitting Rt. Arm 130/88Pulse: Sitting 82 /min and RegularRespiratory Rate: 16Height 67 in or 1.7 mWeight 170 lb or 77.1 kgBMI 26.6Temperature: 97 F or 36.1 CPulse Oximetry: 97 % at rest on no oxygen Chief Complaint: Addressed in HPI Problems or conditions discussed in the HPI were the only ones reviewed during the encounter.Only social and family history addressed in the HPI were reviewed during this encounter. Attendant(s): NoneConstitutional and Systemic Symptoms:none Medication Reconciliation: from medication list. History of Present Illness #1. Laceration left thumb from trying to clean a turn up. Suffered a small laceration with a proximally three sutures in place at the distal portion of the left thumb. Wound is healing well no signs of any infection or drainage. Remaining sutures removed several already fallen out.: Active Medication ListLosartan Potassium 100 MG TABLET One DailyNorvasc 5 MG TABLET Once DailyOmeprazole 20 MG (CAPSULE, DELAYED REL PELLETS - ORAL) One DailyHydrochlorothiazide 12.5 MG CAPSULE One DailyFlomax 0.4 MG (CAPSULE - ORAL) One Daily Wili Negrete MD [address], [facility] [address], [place], [address] , [place] [facility] 09/14/2024 10:34:39 025 text/emiliano mcrae Patient Name: Justin Morton Of Service: May ( 05.26.2025 ): 1955 Age: 70 There has been approximately a 2 lb weight loss since 09/14/2024. This represents approximately a 1.2% change in weight. Weight change attributable to lifestyle changes. Vital Signs:Blood Pressure: Sitting Rt. Arm 160/80Pulse: Sitting 78 /min and RegularRespiratory Rate: 16Height 67 in or 1.7 mWeight 168 lb or 76.2 kgBMI 26.3Temperature: 97 F or 36.1 CPulse Oximetry: 97 % at rest on no oxygen Chief Complaint: Addressed in HPI Problems or conditions discussed in the HPI were the only ones reviewed during the encounter.Only social and family history addressed in the HPI were reviewed during this encounter. Attendants(s) + NoneConstitutional and Systemic Symptoms:none Medication Reconciliation: from medication list. History of Present Illness In for a well patient check up. Last well patient evaluation was approximately one year. No interval complaints of any new major medical problems. No hx of any chest pain, shortness of breath, nausea, vomiting, diarrhea or constitutional symptoms.PSA orderedColonoscopy or Cologuard: dueImmunizations Up To Date or refuses to takeNo Significant Change In Family HxFall Risk normalHearing normalVisual correctedReviewed Smoking and Drug HistoryReviewed Immunization HistoryInstructed on importance of weight on diabetes, heart and other diseases aggravated by obesity.Instructed on importance of weight on diabetes, heart and other diseases aggravated by obesity. #1. Essential Hypertension: Stage: Stage I Interval Neurological Complaints no headaches, dizziness, weakness, visual changes, ataxia, aphasia and apraxia. No shortness of breath, orthopnea or cardiovascular symptoms. No other symptoms related to end organ damage. Pressure has been under fair control. Currently normal. No other end organ symptoms or findings. Therapy reviewed regarding management of hypertension and includes salt restriction and Hydrochlorothiazide, Losartan Potassium and Norvasc. #2. Hx of diverticulitis. No interval complaints of pain, fever, chills or other constitutional symptoms. There has been no change in bowel habits or frequency. No change in the caliber of the stool. #3. Complaining of right foot pain over the dorsum and metatarsal area of the right foot. No history of any specific injury although has been doing a lot of biking lately and has been getting considerable amount of exercise. He is taking Aleve 220 mg twice daily and getting some relief from the discomfort and pain. There is some minimal swelling noted over the metatarsal area as well as the toes. Predominantly in the metatarsal area with some radiation down to the base of the phalanx is. No other associated systemic symptomatology. Radiographic studies read as negative. Can not rule out the possibility of a stress fracture or similar problems such as this.: Wellness Evaluation PHQ-2 Score Last Two Weeks Last Two Weeks: 0: Not at all 1: Several Days 2: More than half 3: Almost Every day #1. Little interest or pleasure in doing things: Not At All :Score 0#2. Feeling down, depressed, or hopeless: Not At All :Score 0Score 0FAST Stage: 1 No functional decline Basic ADLS AmbulationNormalGroomingGeneral Personal Hygiene NormalToiletryNormalDressingDresses Without AssistanceEatingFeeds Self Instrumental ADLS Managing Finances YesManaging Health YesShopping YesPreparing Meals YesUsing Technology YesHouse Work YesTaking Care of Pets YesTaking Care Children YesTransportation Yes Additional Topics Advanced DirectivesDeclinedLiving WillDeclined Social and Physical Activities Drinking History: NoneExercise 20 Minutes per Week: Yes, most of the timeDifficulty Driving Car: NoOther Problems: None,Falling,Orthostatic,Trouble Eating,Teeth Denture Problems,Problems using Telephone,Tiredness or fatigue Smoking HistoryDoes not smokeCannabis HistoryDoes Not Use End Of Wellness Section Active Medication ListLosartan Potassium 100 MG TABLET One DailyNorvasc 5 MG TABLET Once DailyOmeprazole 20 MG (CAPSULE, DELAYED REL PELLETS - ORAL) One DailyHydrochlorothiazide 12.5 MG CAPSULE One DailyFlomax 0.4 MG (CAPSULE - ORAL) One Daily Adverse Drug Reactions ReviewedNo Known Adverse Drug Reactions! Vaccination and Immunization ( ) 2021- COVID PFIZER(X) 2023-09 INFLUENZA( ) 2024-05 SHINGRIX(X) 2023-09 COVID BOOSTER PFIZER( ) 2023-09 RSV( ) 2023-09 DT( ) 2001-06 DTAPImmunizations and Vaccinations Discussed and Implemented if feasible In the Office. Else referred to pharmacies. Surgical History 2016-03 Rt. Inguinal Pmwhed5612-20 Rt. Inguinal Hernia Repair Preventative Testing ( ) 08/19/2024 Albumin 4.3 G/DL N( ) 05/12/2024 PSA 0.76 NG/ML 05/12/2026(X) 05/25/2020 Upper Endoscopy 05/25/2022(X) 05/25/2020 Colonoscopy (5 Years) 05/25/2025Preventative Testing Discussed and Scheduled if Acceptable to Patient Social HistoryDoes not smokeDrinks sociallyCommunications Family HistoryMother 85 Alzheimer's HTN CVAFather 72 from [place] of Prostate1/2 Brother of testicular CA1 Brother living and in good health Wili Negrete MD [address] [facility] [facility] [address], [place], [address] , [facility] [email or web address] 05/26/2025 11:22:19 025 text/ht ml Patient Name: Justin Zaratete Of Service: August ( 09.08.2025 ): 1955 Age: 70 There has been approximately a 2 lb weight gain since 05/26/2025. This represents approximately a 1.2% change in weight. Weight change attributable to lifestyle changes. Vital Signs:Blood Pressure: Sitting Rt. Arm 118/80Pulse: Sitting 66 /min and 95Respiratory Rate: 16Height 67 in or 1.7 mWeight 170 lb or 77.1 kgBMI 26.6Temperature: 97.2 F or 36.2 C Chief Complaint: Addressed in HPI Problems or conditions discussed in the HPI were the only ones reviewed during the encounter.Only social and family history addressed in the HPI were reviewed during this encounter. Attendants(s) + NoneConstitutional and Systemic Symptoms:none Medication Reconciliation: from medication list. [id number]: MRI of the right foot negative for any type of structural abnormalities. No tarsal bursitis or West's neuromas are noted. No soft tissue masses. History of Present Illness #1. Complaining of pain and discomfort in the fingers. Has several nodules on the dorsum of the fingers. These may represent tendon sheath cyst or possible rheumatoid nodules etc.. Will obtain some baseline blood studies to check for any type of inflammatory arthritic changes.: Active Medication ListLosartan Potassium 100 MG TABLET One DailyNorvasc 5 MG TABLET Once DailyLipitor 20 MG TABLET, FILM COATED One DailyOmeprazole 20 MG (CAPSULE, DELAYED REL PELLETS - ORAL) One DailyHydrochlorothiazide 12.5 MG CAPSULE One DailyFlomax 0.4 MG (CAPSULE - ORAL) One Daily Wili Negrete MD [address] [facility], [address] [address], [place], [address] , [facility] [employer] 09/08/2025 14:45:14
--- OUTSIDE RECORDS SUMMARY | 2025-10-03 17:54 | XMS_ITS | Clinical Summary ---
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 [address] [place] [address] PCP - General 09/08/20
--- OUTSIDE RECORDS SUMMARY | 2025-10-03 17:54 | XMS_ITS | Continuity of Care Document ---
Author Organization [place] - [facility], [facility]_G Internal Med [facility] 24 Address [address] [facility] [address] [place] [address] Assessment No assessment recorded. Plan of Treatment Reminders Order Date Submit Date Provider Last Modified By Organization Details Last Modified Time Details Appointments None recorded. Lab ERIN + rf (antinuclea r antibodies + rheumatoid factor), quantitativ e, serum 2024 [employer] [facility], [address], [place], [address], 14:45:52 C-reactive protein, quantitativ e, serum or plasma 2024 025 [employer] ([employer]) [facility], [address], [place], [address], 5 14:45:50 dsDNA Ab, serum 2024 025 [employer] ([employer]) [facility], [address], [place], [address], 5 14:45:48 scleroderma (scl-70) Ab, serum 2024 025 [employer] [facility], [address], [place], [address], 5 14:45:51 ccp (cyclic citrullinat ed peptide) iga+igg, serum 2024 025 [employer] [facility], [address], [place], [address], 14:45:49 sjogren antibody panel (ssa, ssb, ro, la), serum 2024 [employer] ([employer]) [facility], [address], [place], [address], 14:45:51 Muniz MARCOS Ab + PLANT HR MANAGER MARCOS Ab, quant immunoassay , serum 2024 [employer] [facility], [address], [place], [address], 14:45:49 uric acid, serum or plasma 2024 [employer] [facility], [address], [place], [address], 14:45:48 Referral None recorded. Procedures None recorded. Surgeries None recorded. Imaging None recorded. Medication Orders None recorded. Patient TargetsNo targets recorded. Patient Instructions Encounter Date Encounter Id Patient Instructions Last Modified By Organization Details Last Modified Time 09/08/2025 [id number] Arthritic nodule s on the hands. Will check some rheumatoid panel further assess. May need to set up with a hand surgeon for further evaluation possible biopsy Keep Appointment: Fri 09:50 AM [place] Portions of record are template driven. When necessary additional context will be provided. Additionally some portions have been created with voice recognition software. Occasional wrong-word or s ound-a-like substitutions may have occurred due to the inherent limitations of voice recognition software. Read the chart carefully and recognize, using context, where substitutions may have occurred. Created: Wili Negrete M.D. 09.08.2025 01:44 PM [place] [id number] Not available 09/08/2025 14:44:46 Reason for Referral None Reported. Results Created Date Observation Date Name Description Value Unit Range Abnormal Flag Note LastModifiedBy Organization Detail LastModifiedTime 10/03/20 25 10/03/2025 XR, hand No observ ation record ed. [address], [place], [address], 10/03/2025 17:44:38 Result Notes None recorded. Problems Name Problem SNOMED Code Status Onset Date Resolution Date Notes Provider Name and Address Organization Details Recorded Time Abnormal urine 888812209 Active Not Available [facility] 3 15:16:52 Testicular hypofuncti on 033532307 Active Not Available [employer] 3 15:16:52 Prostatism 19016960 Active Not Available [employer] 3 15:16:52 Benign essential hypertensi on 1979824 Active Not Available [employer] 3 15:16:52 Carpal tunnel syndrome 29059466 Active Not Available [employer] 3 15:16:53 Food poisoning 10996954 Active Not Available [facility] 3 15:16:53 Ganglion of joint 38895000 Active Not Available [facility] 3 15:16:53 Diverticul itis 281233406 Active 2016 Not Available [facility] 3 15:16:53 Benign prostatic hyperplasi a 120556677 Active 2017 Not Available [employer] 3 15:16:52 Gastroesop hageal reflux disease 784814875 Active 2019 Not Available [employer] 3 15:16:52 Pancreas divisum 66388650 Active 2020 Not Available [employer] 3 15:16:53 Pancreatit is 33732831 Active 2020 Not Available [facility] 3 15:16:53 Ophthalmic migraine 74939407 Active 2020 Not Available [employer] 3 15:16:54 Pain of right shoulder joint 2109855800697 9100 Active 2021 Not Available [employer] 3 15:16:52 Acute serous otitis media of left ear 8608472109812 101 Active 2021 Not Available [employer] 3 15:16:52 Otitis media 93806658 Active 2021 Not Available [employer] 3 15:16:53 Hearing loss 35147922 Active 2021 Not Available [facility] 3 15:16:52 Low back strain 880530360 Active 2022 Not Available [facility] 3 15:16:53 Disorder of prostate 12335529 Active 2022 Wili Negrete MD [address], [address], [place], [address] , [facility] 3 12:13:08 Anxiety 50013002 Active 2022 Mikala Harris null, [place] - [facility] 3 12:29:16 Enterobias is 129177540 Active 2023 Wili Negrete MD [address], [address], [place], [address] , [facility] 4 12:39:21 Anemia 506386881 Active 2023 Mikala Harris null, [facility] 4 16:27:16 Cobalamin deficiency 983929739 Active 2023 CHRISSY Jones null, [facility] 4 12:24:11 Acute sialoadeni tis 084759858 Active 2023 Wili Negrete MD [address], [address], [place], [address] , [facility] 4 10:52:08 Fatigue 84736896 Active 2023 Yaquelin Christy CMA null, [facility] 4 11:33:36 Laceration of finger of left hand 2267466424766 9106 Active 2023 Wili Negrete MD [address], [address], [place], [address] , [facility] 4 10:33:59 Pain in right foot 5705901903908 07 Active 2024 Roselia Burris null, [facility] 5 17:23:48 Pure hyperchole sterolemia 832915800 Active 2024 Yaquelin Christy CMA null, [facility] 5 15:31:38 Diverticul osis of large intestine 432353305 Active 2024 Roselia Burris null, [facility] 5 12:48:57 Acute low back pain 783750558 Active 2024 Wili Negrete MD [address] [facility], [address] [address], [place], [address] , [facility] 5 11:12:38 Pain of multiple joints 13283646 Active 2024 Wili Negrete MD [address] [facility], [facility] [address], [place], [address] , [facility] 5 14:44:16 Nodule on finger 821721380 Active 2024 ANALIA Vasquez, [facility] 5 11:28:45 Problem Notes None recorded. Procedures Surgical History Date Name Laterality Status Provider Name and Address Organization Details Recorded Time Hernia Surgery completed Not Available [facility] 01/08/2023 15:14:10 Imaging Results None recorded. Procedure [...] administe red by the provider 09/[address] [facility]: [id number] 20 Not Available Not Available [...] Updated DateTime 5 170.18 cm 26.6 kg/m2 01905.7 g 66 /min 97.2 [degF] 95 % 118/80 mm[Hg] Mikala Harris [place] - [facility] 5 14:32:56 Social History Question Answer Notes LastModified by [employer] Details LastModified Time Tobacco Smoking Status Former Smoker Not Available [employer] 01/08/2023 15:13:49 Are You Blind Or Do You Have Difficulty Seeing? No [id number] Information not available 01/08/2023 In The 14 Days Before Symptom Onset, Have You Had Close Contact With A Laboratory-confirm ed COVID-19 While That Case Was Ill? No [id number] 026 Information not available 01/08/2023 In The 14 Days Before Symptom Onset, Have You Had Close Contact With A Person Who Is Under Investigation For COVID-19 While That Person Was Ill? No [id number].[id number] 026 Information not available 01/08/2023 Are You Deaf Or Do You Have Serious Difficulty Hearing? No [id number] 026 Information not available 01/08/2023 What Was The Date Of Your Most Recent Tobacco Screening? 12/05/2021 [id number] 026 Information not available 01/08/2023 Have You Recently Traveled Abroad? No MIGRATION.[id number] 026 Information not available 01/08/2023 Do You Have Difficulty Walking Or Climbing Stairs? No MIGRATION.[id number] 026 Information not available 01/08/2023 Sex: Unknown Functional Status Question Answer Note LastModified by [employer] Details LastModified Time What is your level of alcohol consumption? None [id number].[id number] 026 Information not available 01/08/2023 Do you have transportation difficulties? No MIGRATION.[id number] 026 Information not available 01/08/2023 Are you able to walk independently without assistance or assistive devices? YESWOREST MIGRATION.3108587 026 Information not available 01/08/2023 Do you have difficulty doing errands alone? No MIGRATION.[id number] 026 Information not available 01/08/2023 Are you able to care for yourself independently? Yes [id number].[id number] 026 Information not available 01/08/2023 Do you have difficulty dressing, bathing, grooming, or toileting? No MIGRATION.[id number] 026 Information not available 01/08/2023 Mental Status Question Answer Note LastModified by Organizat ion Details LastModified Time Do you have difficulty concentrating, remembering or making decisions? No [id number].[id number] 6 Information not available 01/08/2023 Family History Relationship Description Onset Age of this Age Resolved Age Notes LastModified by Organization Details LastModified Time Unspecified Relation Family history of malignant neoplasm grandm other [id number] Not available 01/08/2023 15:14:10 Mother Family history of stroke [id number] Not available 01/08/2023 15:14:10 Notes:Mother 85 Alz [...] EAR OR HEARING PROBLEMS N MUMPS N BOWEL PROBLEMS N DEPRESSION (INCLUDING POST ) N STROKE/TIA N ULCERS N BENIGN PROSTATIC [...] INSOMNIA N HIGH CHOLESTEROL / HYPERLIPIDEMIA N EYE PROBLEMS N HYPERTHYROIDISM N NEUROLOGICAL PROBLEMS N EDEMA N CHRONIC PAIN SYNDROME N HYPOTHYROIDISM N CONSTIPATION N CAROTID BLOCKAGE N BACK / NECK PROBLEMS N HAVE YOU BEEN HOSPITALIZED OR SEEN IN [facility] IN THE PAST YEAR ? N ATHEROSCLEROSIS N BREAST PROBLEMS N DIALYSIS N ECZEMA N OSTEOPOROSIS N ARTHRITIS N NO SIGNIFICANT PAST MEDICAL HISTORY N APPENDICITIS N DIABETES, TYPE N BAD TEETH N ENT N HEARTBURN / REFLUX N AUTISM SPECTRUM DISORDER (ASD) N HEPATITIS / LIVER DISEASE N GOUT N SLEEP DISORDER N ALZHEIMER'S DISEASE N Brain Problems N DEMENTIA N HERPES N SEIZURES/EPILEPSY N HEADACHES/MIGRAINES N VASCULAR DISEASE N PACEMAKER N Blood Disorder N DIZZINESS N HEART DISEASE/HEART PROBLEMS N KIDNEY DISEASE N MULTIPLE SCLEROSIS N CANCER: SPECIFY N CARDIAC ARRHYTHMIA N ATRIAL FIBRILLATION N Gall Stones N PULMONARY EMBOLISM N AUTOIMMUNE DISEASE N Immunizations Vaccine Type Date Status Note Provider Nam e and Address Organization Details Recorded Time DT 1 completed CHRISSY Jones, [facility] 05/28/2024 12:04:15 Influenza, split virus, trivalent, PF 4 completed CHRISSY Jones, [facility] 05/28/2024 12:05:47 Influenza, split virus, quadrivalent, PF 3 completed CHRISSY Jones, [facility] 05/28/2024 12:07:07 SARS-COV-2 (COVID-19) vaccine, UNSPECIFIED 1 completed CHRISSY Jones, [facility] 05/28/2024 12:15:35 SARS-COV-2 (COVID-19) vaccine, UNSPECIFIED 1 completed CHRISSY Jones [facility] 05/28/2024 12:16:37 SARS-COV-2 (COVID-19) vaccine, UNSPECIFIED 1 completed CHRISSY Jones [facility] 05/28/2024 12:17:30 COVID-19, mRNA, LNP-S, PF, 30 mcg/0.3 mL dose, bassam-sucrose 2 completed CHRISSY Jones, [place] [employer] [facility] [employer] [facility] 05/28/2024 12:23:46 COVID-19, mRNA, LNP-S, bivalent, PF, 30 mcg/0.3 mL dose 2 completed CHRISSY Jones null, [facility] [employer] [facility] 05/28/2024 12:23:19 COVID-19, mRNA, LNP-S, PF, 50 mcg/0.5 mL 3 completed CHRISSY Jones, [facility] [employer] [facility] 05/28/2024 12:24:39 RSV, recombinant, protein subunit RSVpreF, adjuvant reconstituted, 0.5 mL, PF 3 completed CHRISSY Jones, [facility] [employer] [facility] 05/28/2024 12:25:39 Td (adult), 2 Lf tetanus toxoid, preservative free, adsorbed 1 completed Not Available [employer] 09/08/2025 14:23:37 Tdap 4 completed Not Available [facility] 09/08/2025 14:23:37 Influenza, split virus, trivalent, PF 4 completed Not Available [employer] 09/08/2025 14:23:37 COVID-19, mRNA, LNP-S, PF, 50 mcg/0.5 mL 4 completed Not Available [facility] 09/08/2025 14:23:37 COVID-19, mRNA, LNP-S, PF, bassam-sucrose, 30 mcg/0.3 mL 5 completed Not Available [employer] 09/08/2025 14:23:37 zoster recombinant 4 completed Wili Negrete MD [address] [place] [address], [address], [address], [place] [employer] [facility] 05/11/2024 15:11:00 Influenza, split virus, trivalent, preservative 3 completed Not Available [facility] 01/08/2023 15:20:48 Influenza, high-dose, quadrivalent, PF 1 completed Not Available [facility] 01/08/2023 15:20:48 Past Encounters Encounter ID Performer Location Encounter Start Date Encounter Closed Date Diagnosis/Indication Diagnosis SNOMED-CT Code Diagnosis ICD10 Code Diagnosis IMO Codes Diagnosis Note [id number] Wili Negrete MD [facility] Internal Med [facility] [address] [facility] [address] [place] [address] 09/08/2025 14:22:43 09/08/2025 14:53:13 Pain of multiple joints 51540411 M25.50 Health Concerns Section Related Observation LastModified by Organization Detai ls LastModified Time None Recorded Concern Status LastModified by Organization Details LastModified Time None Recorded Payers Encounter Date Sequence Insurance Name Policy Number Policy Canas Covered Member ID Canas Member ID Guarantor Name 09/08/2025 1 [employer] - OPEN ACCESS [id number] Justin Del Cidwood [id number] OI [id number] SOI Justin Del [place]wood Notes Date Note Type Note Provider Name and Address Organization Details Recorded Time 5 text/htm l Patient Name: Justin JensenDate Of Service: August ( 09.08.2025 ): 1955 [...] Systemic Symptoms:none Medication Reconciliation: from medication list. [id number]: MRI of the right foot negative for [...] ORAL) One Daily Wili Negrete MD [address] [facility] [address], [place], [address], [place] - [facility] [facility] [employer] 09/08/2025 14:45:14
== END 2025-10-03 15:16 | disposition home or self-care (01) ==
PROVIDERS: PCP Internal Medicine; Visit Provider Plastic Surgery
DX: M79.641 Pain in right hand (principal); M79.642 Pain in left hand
CPT/HCPCS: 73130